=== PATIENT | male | born 1990 | race Caucasian/White ===

== ENCOUNTER 2020-10-02 12:23 | Outpatient (REF) | payer MEDICAID, SELFPAY | END 2020-10-02 12:24 | disposition home or self-care (01) | LOC: HO.LAB 12:23 | PROVIDERS: Visit Provider Internal Medicine | DX: Z20.828 Contact with and (suspected) exposure to other viral communicable diseases (principal) | CPT/HCPCS: 36415; C9803; U0003 ==

== ENCOUNTER 2020-11-25 15:50 | Outpatient (REF) | payer MEDICAID, SELFPAY | END 2020-11-25 15:51 | disposition home or self-care (01) | LOC: HO.LAB 15:50 | PROVIDERS: Visit Provider Internal Medicine | DX: Z20.822 Contact with and (suspected) exposure to COVID-19 (principal) | CPT/HCPCS: 36415; C9803; U0003; U0005 ==

== ENCOUNTER 2021-07-01 15:09 | Outpatient (REF) | payer MEDICAID, SELFPAY | END 2021-07-01 15:10 | disposition home or self-care (01) | LOC: HO.LAB 15:09 | PROVIDERS: Visit Provider Internal Medicine | DX: Z20.822 Contact with and (suspected) exposure to COVID-19 (principal) | CPT/HCPCS: C9803; U0003; U0005 ==

== ENCOUNTER 2023-10-28 19:06 | Emergency (ER) | payer MEDICAID, SELFPAY ==
[2023-10-28 19:33] VITALS: BP 116/79; BP 132/76; PULSE 79; PULSE 80; RESP 16; O2SAT 89; O2SAT 93; BMI 21.1
--- NOTE | 2023-10-28 19:45 | ED.GENADULT ---
HPI - General Adult General Chief complaint: ETOH/Substance Use Stated complaint: ETOH, TOOK 1 PERCOCET, NARCAN GIVEN Time Seen by Provider: 10/28/23 19:26 History of Present Illness HPI narrative: Patient is a 33-year-old male history of possible Xanax use per EMS. Patient admits to EMS that he used some Xanax earlier. Stated that he was at the [employer] with his son. Subsequently went out for a smoke. To the provider he denies using any recreational drugs and is not on any medications. Patient was found on the ground at [facility].. Patient was difficult to arouse. Did not wake up with Narcan. Did not have pinpoint pupils. EMS subsequently woke up patient. Patient was taken to the hospital for further evaluation. He denies any suicidal homicidal ideation. He understood his situation. He just wanted go home. [employer] team talking with him. His brother and his nephew went to flower buncher or picker his son earlier in the day the go to the [employer] together. The child's mother has full custody of the child. There is no fever no chills. No focal weakness. Patient understood everything I told him. Related Data Allergies Allergy/AdvReac Type Severity Reaction Status Date / Time No Known Allergies Allergy Verified 10/28/23 19:40 Review of Systems Review of Systems: No fever no chills no chest pain or shortness of breath PMFSH Past Medical History Attestation statement: The following information was validated with the patient. Physical Exam ED Vital Signs: Vital Signs - 24 hr 10/28/23 19:33 Pulse Rate 80 Respiratory Rate 16 Blood Pressure 116/79 Pulse Oximetry 93 Oxygen Delivery Method Room Air BMI result Body Mass Index 21.1 Appearance: Alert. Oriented X3. No acute distress. Eyes: Pupils equal, round and reactive to light. ENT: Pharynx normal. Neck: Normal inspection. Neck supple. No lymph nodes noted. No crepitus CVS: Normal heart rate and rhythm. Pulses normal. Normal S1 and S2 Respiratory: No respiratory distress. Breath sounds normal. No Wheezing. No rales Abdomen: Soft and nontender. No rigidity. No distention. good BS x4 Skin: Skin warm and dry. Normal skin color. Normal skin turgor. Extremities: No lower extremity edema. Neurovascular intact to all extremities. No Lacerations. No Rash Neuro: Oriented X 3. No motor deficit. No sensory deficit. Moving all extermities. No slurred speech Medical Decision Making Medical Decision Making MDM Narrative: Patient awake alert oriented x3 seems to understand of the question. He understood when I explained to him the possibilities that caused him to pass out. Dose possibility includes cardiac issues irregular heartbeat, recreational drugs and alcohol. Patient's wants to leave. He ambulates in a straight line. He has in no distress. He understood his predicament. Patient left against medical advice. After care team discussion with patient, I felt patient's child most likely safe as he is with patient's brother. Mom has full custody of the child. Differential Diagnosis Differential Diagnoses: The differential diagnosis associated with the presentation includes Syncope, irregular heartbeat, polysubstance abuse Admission/Observation Consideration of admission/observation: Escalation of care including admission/observation considered Chronic Conditions Polysubstance abuse Social Determinants Patient?s care significantly limited by Social Determinants of Health including: Low income, Alcoholism and drug addiction in family and Problems related to primary support group Discharge Plan Discharge Clinical Impression: Polysubstance abuse, Syncope Patient Disposition: Left Against Medical Advice Instructions: Syncope (DC), Against Medical Advice (ED) Referrals: [facility] [Physician] - 11/01/23 Stand Alone Forms: Against Medical Advice
== END 2023-10-28 20:42 | disposition left against medical advice (07) ==
PROVIDERS: Emergency Provider Emergency Medicine Emergency Medical Services; PCP Internal Medicine
DX: F19.10 Other psychoactive substance abuse, uncomplicated (principal); R55 Syncope and collapse
CPT/HCPCS: 99283; 99284

== ENCOUNTER 2024-10-29 13:05 | Emergency (ER) | payer MEDICAID, SELFPAY ==
[2024-10-29] VITALS (13 sets, daily range): BP systolic 109–129; BP diastolic 58–83; PULSE 88–112; RESP 12–110; TEMP 36.4–36.9; O2SAT 89–96; BMI 26.5
--- NOTE | ~2024-10-29 | XR_ITS ---
CLINICAL HISTORY: Pneumonia? 1 view chest x-ray Comparison: None Findings: There is faint left basilar density. No effusion. No pneumothorax. Heart size is normal. No acute fracture. IMPRESSION: Probable left lower lobe pneumonia. Follow-up recommended to ensure resolution. This document has been electronically signed by: José Stewart MD on 10/29/2024 14:46:11
--- NOTE | 2024-10-29 13:36 | ED_ITS ---
HPI - Asthma General Chief Complaint: Asthma Stated Complaint: asthma, diff breathing Time Seen by Provider: 10/29/24 13:42 Source: patient Mode of arrival: ambulatory Limitations: no limitations History of Present Illness ED Provider: DR. Shirley HPI Narrative: 34-year-old male past medical history significant for asthma came in for evaluation of 3 days of shortness of breath, patient run out of his albuterol for the past 2 days, reports productive cough with clear sputum, no fever, chills, no recent travel, no lower extremity swelling or tenderness, patient is an active smoker. Related Data Previous Rx's ?Medication ?Instructions ?Recorded albuterol sulfate 2.5 mg/3 mL 2.5 mg (3 mL) inhalation Q4-6H PRN 10/29/24 (0.083 %) solution for nebulization bronchospasm #75 mL albuterol sulfate 90 mcg/actuation 2 puff inhalation Q4-6H PRN 10/29/24 aerosol inhaler shortness of breath or wheezing #8.5 grams doxycycline hyclate 100 mg tablet 100 mg PO BID #20 tabs 10/29/24 Allergies Allergy/AdvReac Type Severity Reaction Status Date / Time No Known Allergies Allergy Verified 10/29/24 13:34 Review of Systems 2 Review of Systems: all other systems are reviewed and are negative Constitutional: Reports as per HPI and Reports no additional constitutional complaints Eyes: Reports as per HPI and Reports no additional eye complaints Reports system reviewed and no additional complaints, except as documented Cardiovascular: Reports as per HPI and Reports no additional cardiovascular complaints Respiratory: Reports as per HPI and Reports no additional respiratory complaints Gastrointestinal: Reports as per HPI and Reports no additional gastrointestinal complaints Genitourinary: Reports no additional female genitourinary complaints Musculoskeletal: Reports no additional musculoskeletal complaints Skin/Breast: Reports system reviewed and no additional complaints, except as docu Psychiatric: Reports no additional psychiatric complaints Endocrine: Reports no additional endocrine complaints Hematologic/Lymphatic: Reports no additional hematologic/lymphatic complaints Allergic/Immunologic: Reports no additional allergic/immunologic complaints Reports system reviewed and no additional complaints, except as documented and Reports Abnormal speech present [facility] Social History Social History Advance Directives: No Advance Directives Information Provided: No Do you have a plan to hurt others: No Plan Physical Exam 2 Vital Signs: Vital Signs: Last Vital Signs Temp 97.6 F 10/29/24 18:03 Pulse 88 10/29/24 18:03 Resp 18 10/29/24 18:03 BP 109/62 10/29/24 18:03 Pulse Ox 96 10/29/24 18:03 O2 Del Method Nasal Cannula 10/29/24 18:03 O2 Flow Rate 2 10/29/24 18:03 BMI result Body Mass Index 26.5 Vital signs have been reviewed and appear to be correct. Blood pressure elevated. Heart rate normal. Respiratory rate normal. Temperature normal. Oxygen saturation normal. Appearance: Alert. Oriented X3. No acute distress. Head: Normal external exam. Normocephalic. Atraumatic. No Rodas signs noted. No raccoon eyes noted Eyes: PERRLA. EOMI. Conjunctiva and sclera normal. Eyelids normal. ENT: TM's Normal. Pharynx normal. Uvula midline. Moist mucous membranes. No trismus noted. No drooling noted. No muffled voice noted. Neck: Normal inspection. Neck supple. FROM. No adenopathy. Thyroid Normal. No meningeal signs. No neck mass noted. CVS: Normal heart rate and rhythm. Heart sound normal. No murmurs noted. Pulses normal throughout. Respiratory: No respiratory distress. Painless inspiration. diffuse mild expiratory wheezing with prolonged expiration and decrease air entry bilaterally. No accessory muscle usage noted or decreased air movement noted. Abdomen: Soft and nontender. Bowel sounds normal in all 4 quadrants. No distention noted. No organomegaly noted. No visible injury noted. Back: No CVA tenderness. Full range of motion noted. Skin: Skin warm and dry. Normal skin color. Normal skin turgor. No rashes/lesions/lacerations noted. Extremities: No lower extremity edema. Extremities exhibit normal range of motion. Extremities nontender. Neuro: Oriented X 3. Cranial nerve exam: II-XII are grossly intact No motor deficit. No sensory deficit. Reflexes normal. Course Course Course Narrative: RME: Endometrial male presents to ED for coughing shortness of breath and wheezing. O2 saturation room air 86 91%. Significant expiratory wheezing. Patient is brought to the ED. Labs ED brought mass Solu-Medrol ordered. Reevaluation(s) Reevaluation #1: patient now meet sepsis protocol will administer fluid, antibiotic, culture and lactic acid was ordered. Time: 15:18 Reevaluation #2: 34-year-old male history of asthma and smoker, hypoxia, and x-ray is showing pneumonia, patient should be admitted with those multiple risk factors, patient is insisting to go home, patient is AAO x3 I discussed the risk of going home including hypoxia, coma, patient fully understand my instructions and still declined admission patient will be signing AMA. Will discharge with albuterol inhaler, albuterol solution, doxycycline. Time: 17:00 Medications Administered Discontinued Medications Generic Name Dose Route Start Last Admin Trade Name Freq PRN Reason Stop Dose Admin Albuterol Sulfate 2.5 mg/ 5 mg 10/29/24 14:39 10/29/24 14:42 Albuterol Sulfate 2.5 mg INHALE 10/29/24 14:40 5 mg ONCE ONE Administration Ceftriaxone Sodium 1 gm 10/29/24 15:19 10/29/24 15:57 Ceftriaxone Sodium 1 Gm Vial IVPUSH 10/29/24 15:20 1 gm ONCE ONE Administration Albuterol Sulfate 5 mg/ 0 mg 10/29/24 13:46 10/29/24 13:51 Albuterol/Ipratropium 3 ml INHALE 10/29/24 13:47 7.5 each ONCE ONE Administration Magnesium Sulfate 2 gm in 50 mls @ 25 mls/hr 10/29/24 13:35 10/29/24 15:51 Magnesium Sulfate/H2o IV 10/29/24 15:34 Infused ONCE ONE Infusion Sodium Chloride 1,000 mls @ 999 mls/hr 10/29/24 15:19 10/29/24 16:59 Ns IV 10/29/24 16:19 Infused .Q1H1M ONE Infusion Doxycycline Hyclate 100 mg/ 250 mls @ 166.67 mls/hr 10/29/24 15:19 10/29/24 17:27 Sodium Chloride IV 10/29/24 16:48 Infused ONCE ONE Infusion Methylprednisolone Sodium Succinate 125 mg 10/29/24 13:35 10/29/24 13:51 Methylprednisolone Sod Succ 125 Mg/2 Ml Vial IVPUSH 10/29/24 13:36 125 mg ONCE ONE Administration Medical Decision Making Differential Diagnosis Differential Diagnoses: The differential diagnosis associated with the presentation includes ( Asthma exacerbation, pneumonia, pneumothorax, pleural effusion, electrolyte derangement, severe anemia, sepsis.) Admission/Observation Consideration of admission/observation: Escalation of care including admission/observation considered Lab Data MDM Lab Attestation statement: I reviewed the patient's lab results. 10/29/24 13:46 10/29/24 13:46 Labs: Lab Results 10/29/24 10/29/24 10/29/24 Range/Units 13:46 13:48 15:56 WBC 12.4 H (4.8-10.8) X10*3/uL RBC 4.60 (4.60-5.80) X10*6/uL Hgb 13.2 L (14.0-18.0) g/dl Hct 40.1 L (42.0-52.0) % MCV 87.2 (80.0-98.0) fL MCH 28.7 (27.0-33.0) pg MCHC 32.9 (31.0-36.0) g/dl RDW 13.3 (11.0-16.0) % Plt Count 315 (160-400) X10*3/uL MPV 8.6 L (9.4-12.4) fL Immature Gran % (Auto) 0.3 (0.0-0.4) % Neut % (Auto) 67.1 (45-73) % Lymph % (Auto) 16.5 L (20-40) % [place] % (Auto) 8.7 (2-11) % Eos % (Auto) 6.6 H (0-4) % Baso % (Auto) 0.8 (0-2) % Lymph # (Auto) 2.0 (1.2-4.9) X10*3/uL [place] # (Auto) 1.1 (0.1-1.2) X10*3/uL Eos # (Auto) 0.8 H (0.0-0.4) X10*3/uL Baso # (Auto) 0.1 (0.0-0.2) X10*3/uL Abs Immat Gran (auto) 0.04 H (0.00-0.03) X10*3/uL Absolute Neuts (auto) 8.3 (2.0-8.3) x10*3/uL Absolute Nucleated RBC 0.000 (0.0-0.012) X10*3/uL Nucleated RBC % (auto) 0.0 (0.0-0.2) /100WBC Hold Purple Top SEE NOTE Hold Blue Top SEE NOTE Sodium 142 (135-145) mmol/L Potassium 4.1 (3.3-5.1) mmol/L Chloride 105 (96-108) mmol/L Carbon Dioxide 27 (22-29) mmol/L Anion Gap 14 (12-20) BUN 11 (9-16) mg/dL Creatinine 0.80 (0.5-1.4) mg/dL Estim Creat Clear Calc 119.6 Estimated GFR > 60 Random Glucose 73 (60-115) mg/dL Lactic Acid 2.7 H* (0.5-2.0) mmol/L Calcium 9.3 (8.4-10.2) mg/dL Total Bilirubin 0.2 (0.0-1.0) mg/dL AST 21 (5-37) U/L ALT 19 (0-40) U/L Alkaline Phosphatase 58 (39-117) U/L Total Protein 8.2 H (6.5-8.0) g/dL Albumin 4.6 (3.5-5.0) g/dL Hold Green Top See Note Influenza Type A (PCR) NEGATIVE (Negative) Influenza Type B (PCR) NEGATIVE (Negative) RSV RNA Qual (PCR) NEGATIVE (Negative) SARS-CoV-2 RNA (RT-PCR) NEGATIVE (Negative) S. pyogenes GrpA MARTIN Negative (Negative) Independent Interpretation I performed an independent interpretation of an: Plain X-Ray ( Chest:Probable left lower lobe pneumonia. Follow-up recommended to ensure resolution.) Radiology Impression Discussion of test interpretation with radiology: I have reviewed the radiologist's reading. Discharge Plan Discharge Clinical Impression: Pneumonia, Asthma with acute exacerbation Patient Disposition: Left Against Medical Advice Instructions: Community Acquired Pneumonia (ED) Prescriptions: New doxycycline hyclate 100 mg tablet 100 mg PO BID Qty: 20 0RF albuterol sulfate 90 mcg/actuation HFA aerosol inhaler 2 puff inhalation Q4-6H PRN (Reason: shortness of breath or wheezing) Qty: 8.5 0RF albuterol sulfate 2.5 mg /3 mL (0.083 %) solution for nebulization 2.5 mg inhalation Q4-6H PRN (Reason: bronchospasm) Qty: 75 0RF Stand Alone Forms: Against Medical Advice Interventions: ED Discharge Assessment Last Done: 10/29/24 18:03 Discharge Date/Time: 10/29/24 18:02 Print Language: Greek
[2024-10-29] MEDS: Albuterol Sulfate 5 MG, Albuterol/Iprat 2.5/0.5MG 3 ML 3 ML INHALE (13:51)
[2024-10-29] MEDS: methylPREDNISolone Sod Succ 125 MG/2 ML VIAL IVPUSH (13:51)
[2024-10-29] MEDS: Magnesium Sulfate/H2O 2 GM/50 ML PIGGYBACK IV (13:51)
[2024-10-29 13:54] LABS: MANUAL DIFF FLAG NO
--- OUTSIDE RECORDS SUMMARY | 2024-10-29 13:57 | XMS_ITS | Encounter Summary ---
Author Organization [facility] Address [address] [place] [phone] Phone Care Team Providers Care Roller Hand Name Role Phone Damon Jones MD Primary Care Provider [phone] Encounter Details Date Type Department Care Team (Late st Contact Info) Description 05/05/2017 Conversion Encounter [facility] - [address], [address] [place] [address] Damon Jones MD [address] [place] [phone] Social History Tobacco Use Types Packs/Day Years Used Date Smoking Tobacco: Never Assessed Sex and Gender Information Value Date Recorded Sex Assigned at Not on file Legal Sex Male 5:21 PM EST Gender Identity Not on file Sexual Orientation Not on file documented as of this encounter Plan of Treatment Not on file documented as of this encounter Visit Diagnoses Not on filedocumented in this encounter Care Teams Roller Hand Relationship Specialty Start Date End Date Damon Jones MD [address] [place] [address] PCP - General 11/17/16 04/08/21 documented as of this encounter
--- NOTE | 2024-10-29 14:00 | PC.NURSE ---
pt presents to the ED d/t asthma exacerbation. RT bedside. 88% on RA upon ED arrival. tachycardic. otherwise vss and up to date. pt reports increased sob x 4-5 days. ran out of nebulizers/inhalers at home. wheezing noted throughout. pt denies chest pain/palpitations/productive cough/chills. 20gIV placed in the right upper arm - labs obtained/sent to lab. medication administered per provider order. effectiveness pending. pt receiving breathing tx. chest xray results pending at this time. plan of care ongoing. call ruffin placed within reach.
[2024-10-29 14:05] LABS: IDNOW Serial# 6674DD1D; Strep A Nucleic Acid Negative (Negative)
[2024-10-29 14:07] LABS: Basophils Absolute Auto 0.1 X10*3/uL (0.0-0.2); Basophils Percent Auto 0.8 % (0-2); Eosinophils Absolute Auto 0.8 X10*3/uL (0.0-0.4); Eosinophils Percent Auto 6.6 % (0-4); Hematocrit 40.1 % (42.0-52.0); Hemoglobin 13.2 g/dl (14.0-18.0); Imm Gran Abs Auto 0.04 X10*3/uL (0.00-0.03); Imm Gran Pct Auto 0.3 % (0.0-0.4); Lymphocytes Percent Auto 16.5 % (20-40); Mean Corpuscular HGB Conc 32.9 g/dl (31.0-36.0); Mean Corpuscular Hemoglobin 28.7 pg (27.0-33.0); Mean Corpuscular Volume 87.2 fL (80.0-98.0); Mean Platelet Volume 8.6 fL (9.4-12.4); Monocytes Absolute Auto 1.1 X10*3/uL (0.1-1.2); Monocytes Percent Auto 8.7 % (2-11); Neutrophils Absolute Auto 8.3 x10*3/uL (2.0-8.3); Neutrophils Percent Auto 67.1 % (45-73); Platelet Count 315 X10*3/uL (160-400); Red Cell Distribution Width 13.3 % (11.0-16.0); White Blood Count 12.4 X10*3/uL (4.8-10.8)
[2024-10-29 14:12] LABS: Alanine Aminotransferase 19 U/L (0-40); Albumin Level 4.6 g/dL (3.5-5.0); Alkaline Phosphatase 58 U/L (39-117); Anion Gap 14 (12-20); Aspartate Amino Transferase 21 U/L (5-37); Bilirubin Total 0.2 mg/dL (0.0-1.0); Blood Urea Nitrogen 11 mg/dL (9-16); Calcium 9.3 mg/dL (8.4-10.2); Carbon Dioxide 27 mmol/L (22-29); Chloride 105 mmol/L (96-108); Creatinine Clr Calc Pharmacy 119.6; Estimated Glomerular Filt Rate > 60; Glucose Random 73 mg/dL (60-115); Potassium 4.1 mmol/L (3.3-5.1); Sodium 142 mmol/L (135-145); Total Protein 8.2 g/dL (6.5-8.0)
--- NOTE | 2024-10-29 14:14 | PC.NURSE ---
pt noted to remain at 86%-91% on RA w/ a good read post breathing tx. pt placed on 2L via NC. pt otherwise remains sinus tachy. vitals otherwise stable/wnl. wob decreased post breathing tx/medication administration. pt remains upright to promote patent airway. plan of care ongoing.
[2024-10-29] MEDS: Albuterol Sulfate 2.5 MG, Albuterol Sulfate (0.083%) 2.5 MG 5 MG INHALE (14:42)
--- NOTE | 2024-10-29 14:54 | PC.NURSE ---
pt receiving 2nd breathing tx at this time.
[2024-10-29 15:14] LABS: Influenza A PCR NEGATIVE (Negative); Influenza B PCR NEGATIVE (Negative); Resp Syncy Virus RNA Qual PCR NEGATIVE (Negative); SARS COV2 PCR INHOUSE NEGATIVE (Negative)
[2024-10-29] MEDS: cefTRIAXone sodium 1 GM VIAL IVPUSH (15:57)
[2024-10-29] MEDS: Doxycycline Hyclate 100 MG in 0.9 % Sodium Chloride 250 ML 166.67 MG IV (15:57)
[2024-10-29] MEDS: 0.9 % Sodium Chloride 1,000 ML 999 ML IV (15:58)
--- NOTE | 2024-10-29 16:03 | PC.NURSE ---
Addendum entered by Missy Talavera 10/29/24 16:04: delay in abx administration d/t emergent situation w/ other pt in ED4. Original Note: sepsis workup initated. cultures/lactic obtained/sent to lab by tech. IVF/abx administered per provider order. pt remains on 2L via oxymask at this time. respirations remain even/unlabored. plan of care ongoing.
[2024-10-29 16:40] LABS: Lactic Acid 2.7 mmol/L (0.5-2.0)
--- NOTE | 2024-10-29 17:59 | PC.NURSE ---
pt refusing to stay/be treated despite labs/vitals/being a sepsis alert. this RN as well as MD attempted to speak w/ pt in regards to importance of staying. pt still refusing. pt signed AMA paperwork.
[2024-10-29 18:03] LABS: Reflex Lactate? Lactic Acid Added
== END 2024-10-29 18:02 | disposition left against medical advice (07) ==
PROVIDERS: Physician Assistant; Emergency Provider Emergency Medicine
DX: J18.9 Pneumonia, unspecified organism (principal); J45.901 Unspecified asthma with (acute) exacerbation; R06.02 Shortness of breath; R05.9 Cough, unspecified; Z79.899 Other long term (current) drug therapy; Z03.818 Encounter for observation for suspected exposure to other biological agents ruled out
CPT/HCPCS: 0241U; 36415; 71045; 80053; 83605; 85025; 87040; 87651; 94640; 96365; 96366; 96367; 96375; 99284; J0696; J2919; J3475

== ENCOUNTER → 2024-10-29 13:35 | Outpatient (BNV) | payer MEDICAID, SELFPAY | PROVIDERS: Emergency Provider Emergency Medicine; Visit Provider Radiology Vascular & Interventional Radiology | DX: J18.9 Pneumonia, unspecified organism (principal) | CPT/HCPCS: 71045 ==

== ENCOUNTER 2024-11-26 13:44 | Emergency (ER) | payer MEDICAID, SELFPAY ==
--- NOTE | 2024-11-26 | ECG_ITS ---
Test Reason : sob Blood Pressure : */* mmHG Vent. Rate : 84 BPM Atrial Rate : 84 BPM P-R Int : 136 ms QRS Dur : 84 ms QT Int : 354 ms P-R-T Axes : 83 80 60 degrees QTcB Int : 418 ms Normal sinus rhythm with sinus arrhythmia Normal ECG No previous ECGs available Referred By: Ryan Murry Electronically Signed By: GER ANAND MD
[2024-11-26 13:54] VITALS: BP 147/92; PULSE 74; RESP 18; TEMP 36.6; O2SAT 94; BMI 21.3
--- NOTE | 2024-11-26 13:58 | ED_ITS ---
HPI - General Adult General Chief complaint: Asthma Stated complaint: diff breathing Time Seen by Provider: 11/26/24 14:02 History of Present Illness ED Provider: Lovely BYRNE narrative: The patient is a 34-year-old male with a history of asthma who says that he recently ran out of medication for his nebulizer machine at home and also ran out of his inhaler. He has been having worsening symptoms of shortness of breath since yesterday and he could not treat himself because of a lack of medications. He has had no definite fevers, sweats, chills. He became extremely short of breath and finally came to the emergency department. He says that this episode is similar to previous significant asthma exacerbations. Related Data Previous Rx's ?Medication ?Instructions ?Recorded albuterol sulfate 2.5 mg/3 mL 2.5 mg (3 mL) inhalation Q4-6H PRN 10/29/24 (0.083 %) solution for nebulization bronchospasm #75 mL albuterol sulfate 90 mcg/actuation 2 puff inhalation Q4-6H PRN 10/29/24 aerosol inhaler shortness of breath or wheezing #8.5 grams doxycycline hyclate 100 mg tablet 100 mg PO BID #20 tabs 10/29/24 albuterol sulfate 2.5 mg/3 mL 2.5 mg (3 mL) inhalation Q4H PRN 11/26/24 (0.083 %) solution for nebulization bronchospasm #180 mL budesonide-formoterol HFA 160 2 puff inhalation BID #10.2 grams 11/26/24 mcg-4.5 mcg/actuation aerosol inhaler prednisone 20 mg tablet 20 mg PO DAILY #12 tabs 11/26/24 Allergies Allergy/AdvReac Type Severity Reaction Status Date / Time No Known Allergies Allergy Verified 11/26/24 13:57 Review of Systems Review of Systems: Yes all other systems are reviewed and are negative PMFSH Social History Social History Advance Directives: No Advance Directives Information Provided: No Physical Exam ED Vital Signs: Vital Signs - 24 hr 11/26/24 13:54 11/26/24 14:14 11/26/24 15:15 Temperature 97.8 F Pulse Rate 74 91 78 Respiratory Rate 18 30 H 13 Blood Pressure 147/92 H Pulse Oximetry 94 Oxygen Delivery Method Room Air 11/26/24 16:37 Temperature 97.9 F Pulse Rate 84 Respiratory Rate 18 Blood Pressure 129/78 Pulse Oximetry 96 Oxygen Delivery Method Room Air BMI result Body Mass Index 21.3 Const Other: The patient is a slim 34-year-old who was awake and alert. He looked extremely short of breath. HENMT Other: Face is symmetrical. Mucous membranes moist. Eyes General: appearance normal, both eyes and all related structures Neck Neck: Yes full ROM, Yes no lymphadenopathy and Yes no JVD Resp Other: The patient was exhibiting obvious increased work of breathing with tachypnea and intercostal indrawing. The patient had diminished breath sounds bilaterally with inspiratory and expiratory wheezes. Prolonged expiratory phase. Cardio Rate: regular rate Rhythm: regular rhythm Heart sounds: S1 normal heart sound present and S2 normal heart sound present GI Other: Abdomen is flat, soft, and nontender Skin Other: skin is dry and unremarkable Neuro Other: the patient was awake and alert. He looks distracted by his difficulty breathing but otherwise had a normal mental status. Cranial nerves 2 through 12 are intact. He was move his extremities normally and appropriately. Gait was steady. Extrem Other: No calf swelling or tenderness. No peripheral edema. Course Course Course Narrative: RME: 34 yold male with pmh of asthma presents to the ED for SOB, coughing, and wheezing for couple of days. positive for wheezing on exam. SARS/Strep/Chest xray ordered. ED bronchodilator ordered Medications Administered Discontinued Medications Generic Name Dose Route Start Last Admin Trade Name Freq PRN Reason Stop Dose Admin Albuterol Sulfate 7.5 mg/ 10 mg 11/26/24 14:13 11/26/24 14:15 Albuterol Sulfate 2.5 mg INHALE 11/26/24 14:14 10 mg ONCE ONE Administration Albuterol Sulfate 5 mg/ 0 mg 11/26/24 15:10 11/26/24 15:14 Albuterol/Ipratropium 3 ml INHALE 11/26/24 15:11 7.5 each ONCE ONE Administration Magnesium Sulfate 2 gm in 50 mls @ 150 mls/hr 11/26/24 14:06 11/26/24 14:32 Magnesium Sulfate/H2o IV 11/26/24 14:25 Infused ONCE ONE Infusion Prednisone 60 mg 11/26/24 14:06 11/26/24 14:24 Prednisone 20 Mg Tablet PO 11/26/24 14:07 60 mg ONCE ONE Administration Medical Decision Making Medical Decision Making [facility] Narrative: The patient is a 34-year-old male with a history of asthma presented with the acute respiratory distress. His physical exam was consistent with a severe asthma exacerbation. His oxygen saturation when I saw him was 88% on room air. He was seen promptly and given 2 g of IV magnesium. He was given an additional dose of albuterol 10 mg as a bronchodilator treatment. He was subsequently given a 2nd dose of 5 mg of albuterol with 2.5 mg of ipratropium. He was observed. His respiratory symptoms improved dramatically. His increasedwork of breathing resolved. his air entry was much better on examination. His room air saturation was 97%. The patient was feeling considerably better and was eager for discharge. He requested medication for his nebulizer machine. He was prescribed albuterol nebulous. He will also be prescribed a course of additional prednisone for the next 5 days and was prescribed a budesonide formoterol inhaler. His primary care doctor is Dr. Anthony Mayen at [facility] in [place]. He is encouraged to get a prompt follow up appointment. He should return to the emergency room if worse. Lab Data Labs: Lab Results 11/26/24 Range/Units 16:09 Influenza Type A (PCR) NEGATIVE (Negative) Influenza Type B (PCR) NEGATIVE (Negative) RSV RNA Qual (PCR) NEGATIVE (Negative) SARS-CoV-2 RNA (RT-PCR) NEGATIVE (Negative) S. pyogenes GrpA MARTIN Negative (Negative) Discharge Plan Discharge Clinical Impression: Asthma with acute exacerbation Patient Disposition: Home, Self-Care Instructions: Asthma (ED) Additional Instructions: You has been started on a course of prednisone. A prescription has been sent to your pharmacy for additional prednisone. 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 A prescription has also been sent for albuterol that you may use your nebulizer machine at home. For an inhaler that you may keep with you I have sent a prescription for a medication called budesonide-formoterol. This is a combination of a bronchodilator ( like albuterol) and a steroid. When you are feeling well you should use this 2 puffs 2 times a day to help keep your asthma symptoms controlled. For your exacerbation episodes you may use this as frequently as 2 puffs every 4 hours. Please follow up soon with your regular doctor. Call in the morning for a follow up appointment. Do your best to not smoke or use any vaping devices. Return to the emergency room if significantly worse. Prescriptions: New prednisone 20 mg tablet 20 mg PO DAILY Qty: 12 0RF Rx Instructions: Take 3 tablets by mouth daily for 2 days then take 2 tablets by mouth daily for 3 days. budesonide-formoterol 160-4.5 mcg/actuation HFA aerosol inhaler 2 puff inhalation BID Qty: 10.2 0RF albuterol sulfate 2.5 mg /3 mL (0.083 %) solution for nebulization 2.5 mg inhalation Q4H PRN (Reason: bronchospasm) Qty: 180 0RF No Action doxycycline hyclate 100 mg tablet 100 mg PO BID Qty: 20 0RF albuterol sulfate 90 mcg/actuation HFA aerosol inhaler 2 puff inhalation Q4-6H PRN (Reason: shortness of breath or wheezing) Qty: 8.5 0RF albuterol sulfate 2.5 mg /3 mL (0.083 %) solution for nebulization 2.5 mg inhalation Q4-6H PRN (Reason: bronchospasm) Qty: 75 0RF Referrals: Anthony Mayen MD [Primary Care Provider] - (asthma exacerbation) Interventions: ED Discharge Assessment Last Done: 11/26/24 16:37 Discharge Date/Time: 11/26/24 16:39 Print Language: Estonian
[2024-11-26] MEDS: Magnesium Sulfate/H2O 2 GM/50 ML PIGGYBACK IV (14:10)
[2024-11-26 14:14] VITALS: PULSE 91; RESP 30; O2SAT 94
[2024-11-26] MEDS: Albuterol Sulfate 7.5 MG, Albuterol Sulfate (0.083%) 2.5 MG 10 MG INHALE (14:15)
[2024-11-26] MEDS: predniSONE 20 MG TABLET 60 MG PO (14:24)
--- NOTE | 2024-11-26 14:28 | PC.NURSE ---
PT O2 sats at 79% on RA pt placed on 2L NC, pt sats went up to 90 pt on 3L NC and at 94%
[2024-11-26] MEDS: Albuterol Sulfate 5 MG, Albuterol/Iprat 2.5/0.5MG 3 ML 3 ML INHALE (15:14)
[2024-11-26 15:15] VITALS: PULSE 78; RESP 13; O2SAT 95
[2024-11-26 16:24] LABS: IDNOW Serial# 58CA691E; Strep A Nucleic Acid Negative (Negative)
[2024-11-26 16:37] VITALS: BP 129/78; PULSE 84; RESP 18; TEMP 36.6; O2SAT 96
[2024-11-26 17:23] LABS: Influenza A PCR NEGATIVE (Negative); Influenza B PCR NEGATIVE (Negative); Resp Syncy Virus RNA Qual PCR NEGATIVE (Negative); SARS COV2 PCR INHOUSE NEGATIVE (Negative)
== END 2024-11-26 16:39 | disposition home or self-care (01) ==
PROVIDERS: Physician Assistant; Emergency Provider Emergency Medicine; PCP Internal Medicine
DX: J45.901 Unspecified asthma with (acute) exacerbation (principal); R06.02 Shortness of breath; I49.8 Other specified cardiac arrhythmias; Z03.818 Encounter for observation for suspected exposure to other biological agents ruled out; Z79.899 Other long term (current) drug therapy
CPT/HCPCS: 0241U; 87651; 93005; 94640; 96365; 99284; J3475

== ENCOUNTER → 2024-11-26 14:13 | Outpatient (BNV) | payer MEDICAID, SELFPAY | PROVIDERS: Emergency Provider Emergency Medicine; PCP Internal Medicine; Visit Provider Internal Medicine Cardiovascular Disease | DX: R06.02 Shortness of breath (principal) | CPT/HCPCS: 93010 ==

== ENCOUNTER 2025-03-01 09:14 | Emergency (ER) | payer SELFPAY ==
--- NOTE | ~2025-03-01 | XR_ITS ---
EXAMINATION: XR CHEST CLINICAL INFORMATION: Shortness of breaths COMPARISON: 10/29/2024. TECHNIQUE: Frontal view of the chest was obtained. FINDINGS: The cardiac, hilar, and mediastinal contours are normal. The lungs are clear bilaterally. No pneumothorax or effusion. No focal osseous or soft tissue abnormality. XR/XR chest 1V IMPRESSION: No active pulmonary disease. Electronically signed by: Cheng Obrien MD 03/01/2025 10:33 AM EDT
[2025-03-01] MEDS: Albuterol Sulfate 5 MG, Albuterol/Iprat 2.5/0.5MG 3 ML 3 ML INHALE (09:25)
[2025-03-01 09:27] VITALS: BP 137/85; BP 148/100; PULSE 110; PULSE 96; RESP 20; TEMP 36.9; O2SAT 95; BMI 23.9
--- NOTE | 2025-03-01 09:28 | ECG_ITS ---
Test Reason : SOB Blood Pressure : */* mmHG Vent. Rate : 102 BPM Atrial Rate : 102 BPM P-R Int : 114 ms QRS Dur : 86 ms QT Int : 346 ms P-R-T Axes : 81 84 61 degrees QTcB Int : 450 ms Sinus tachycardia Otherwise normal ECG When compared with ECG of 26-Nov-2024 14:13, No significant change was found Referred By: Marla Sheppard Electronically Signed By: ROE DUNCAN
--- NOTE | 2025-03-01 09:29 | ED_ITS ---
HPI - Asthma General Chief Complaint: Dyspnea Stated Complaint: SOB X3D, DUONEB GIVEN PER EMS Time Seen by Provider: 03/01/25 09:17 Source: patient, EMS, RN notes reviewed and old records reviewed Mode of arrival: EMS Limitations: no limitations History of Present Illness ED Provider: Kevin Sheppard PA-C HPI Narrative: 34-year-old male with history of severe persistent asthma presenting to the ER for evaluation of worsening shortness of breath for the last 3 days. Patient reports that the and spring season tends to trigger his asthma every year. He states he has been using his albuterol inhaler and nebulizer several times per day without any improvement. He has been coughing up green phlegm. He states he has a diffuse headache from coughing so much. This morning he states his breathing got progressively worse and he called 911. On EMS arrival patient was tachypneic in respiratory distress with diffuse wheezing. He was saturating in the high 80s on room air. He was placed on a non-rebreather, IV was established and he was given IV Solu-Medrol 125 mg. He is also given a DuoNeb EN route. Respiratory rate improved on arrival. MD complaint: shortness of breath, wheezing and other (Asthma) Onset (ago): day(s) (3) Severity: severe Context: allergen exposure Associated symptoms: productive cough Asthma History: childhood onset Treatments Prior to Arrival: inhaled bronchodilator Related Data Current Asthma Therapy: inhaled bronchodilator Previous Rx's ?Medication ?Instructions ?Recorded albuterol sulfate 2.5 mg/3 mL 2.5 mg (3 mL) inhalation Q4-6H PRN 10/29/24 (0.083 %) solution for nebulization bronchospasm #75 mL albuterol sulfate 90 mcg/actuation 2 puff inhalation Q4-6H PRN 10/29/24 aerosol inhaler shortness of breath or wheezing #8.5 grams doxycycline hyclate 100 mg tablet 100 mg PO BID #20 tabs 10/29/24 albuterol sulfate 2.5 mg/3 mL 2.5 mg (3 mL) inhalation Q4H PRN 11/26/24 (0.083 %) solution for nebulization bronchospasm #180 mL budesonide-formoterol HFA 160 2 puff inhalation BID #10.2 grams 11/26/24 mcg-4.5 mcg/actuation aerosol inhaler prednisone 20 mg tablet 20 mg PO DAILY #12 tabs 11/26/24 albuterol sulfate 5 mg/mL(0.5 %) 5 mg inhalation Q4H PRN shortness 03/01/25 solution for nebulization of breath or wheezing #75 mL azithromycin 250 mg tablet See Rx Instructions PO .COMPLEX #6 03/01/25 (Zithromax Z-Kristian) tabs budesonide 90 mcg/actuation breath 1 inh inhalation Q12H #1 ea 03/01/25 activated powder inhaler (Pulmicort Flexhaler) cetirizine 10 mg capsule (Zyrtec) 10 mg PO DAILY #30 caps 03/01/25 prednisone 10 mg tablets in a dose See Taper PO DAILY #30 ea 03/01/25 pack Allergies Allergy/AdvReac Type Severity Reaction Status Date / Time No Known Allergies Allergy Verified 03/01/25 09:30 Review of Systems 2 Review of Systems: Yes all other systems are reviewed and are negative [facility] Social History Social History Advance Directives: No Advance Directives Information Provided: No Physical Exam 2 Vital Signs: Vital Signs: Last Vital Signs Temp 97.6 F 03/01/25 12:33 Pulse 90 03/01/25 12:33 Resp 13 03/01/25 12:33 BP 121/70 03/01/25 12:33 Pulse Ox 88 L 03/01/25 12:33 O2 Del Method Room Air 03/01/25 12:33 O2 Flow Rate 7 03/01/25 10:21 Oxygen Flow Rate 6 03/01/25 09:27 BMI result Body Mass Index 23.9 Appearance: Alert. Oriented X3. Moderate respiratory distress, slightly diaphoretic Head: normocephalic, atraumatic. Eyes: Pupils equal, round and reactive to light. ENT: Pharynx normal. No tonsillar swelling or exudate. Neck: Normal inspection. Neck supple. CVS: Tachycardic, regular rhythm, heart rate 110 Pulses normal. Respiratory: Moderate respiratory distress, grunting, increased respiratory rate, accessory muscle use Breath sounds with diffuse inspiratory and expiratory wheezing Abdomen: Soft and nontender. +BS x4 Skin: Skin warm and dry. Normal skin color. Normal skin turgor. No rashes. Extremities: No lower extremity edema. No joint swelling. Negative Homans sign Neuro/psych: Oriented X 3. Grossly normal, nonfocal CN II-XII intact. Normal speech and cognition. Medications Administered Discontinued Medications Generic Name Dose Route Start Last Admin Trade Name Michael PRN Reason Stop Dose Admin Albuterol Sulfate 5 mg/ 0 mg 03/01/25 09:24 03/01/25 09:25 Albuterol/Ipratropium 3 ml INHALE 03/01/25 09:25 7.5 each ONCE ONE Administration Magnesium Sulfate 2 gm in 50 mls @ 150 mls/hr 03/01/25 09:29 03/01/25 10:02 Magnesium Sulfate/H2o IV 03/01/25 09:48 Infused ONCE ONE Infusion Ketorolac Tromethamine 15 mg 03/01/25 09:38 03/01/25 09:45 Ketorolac Tromethamine 15 Mg/Ml Vial IVPUSH 03/01/25 09:39 15 mg ONCE ONE Administration Medical Decision Making Medical Decision Making MDM Narrative: 34-year-old male with a history of severe persistent asthma, he reports using his rescue inhaler daily, does not follow with a blueprint blocker, is not on any allergy medication, who presents to the ER for evaluation of 3 days of worsening asthma symptoms despite using his albuterol inhaler and nebulizer. He was hypoxic for EMS, tachypneic and in respiratory distress. He was given Solu- Medrol and DuoNeb EN route. On arrival to the ER patient was transition to nasal cannula. RT at the bedside and ED bronchodilator protocol started. Magnesium and labs ordered Patient breathing more comfortably after nebulizer administration here. He was attempted to come off of nasal cannula however was hypoxic to the mid 80s after about 3 minutes on room air. He is back on 3 L nasal cannula. Anticipate he will require admission 13:15 - multiple conversations were had with the patient regarding his hypoxia and ongoing oxygen need. He was adamant that he does not want to stay in the hospital and would like to leave against medical advice. He was monitored on room air for over an hour and SpO2 ranged 88-95%. He is overall feeling much better would like to go home. We discussed the risk of hypoxia at home, inability to discharge with supplemental oxygen and risk of possible adverse event even . Patient understands the risks and would like to be discharged. Patient's father at the bedside who also tried to convince him to stay but he is unwilling. Father to transport him home. He states he has a home pulse oximeter that he will use to monitor his oxygen levels at home Differential Diagnosis Differential Diagnoses: The differential diagnosis associated with the presentation includes Acute asthma exacerbation, viral bronchitis, status asthmaticus, COPD exacerbation, heart failure exacerbation, viral illness Admission/Observation Consideration of admission/observation: Escalation of care including admission/observation considered Lab Data MDM Lab Attestation statement: I reviewed the patient's lab results. No leukocytosis, elevated bicarb concerning for chronic CO2 retention, mild anemia 03/01/25 09:35 03/01/25 09:35 Labs: Lab Results 03/01/25 03/01/25 Range/Units 09:35 09:41 WBC 10.0 (4.8-10.8) X10*3/uL RBC 4.35 L (4.60-5.80) X10*6/uL Hgb 11.9 L (14.0-18.0) g/dl Hct 37.4 L (42.0-52.0) % MCV 86.0 (80.0-98.0) fL MCH 27.4 (27.0-33.0) pg MCHC 31.8 (31.0-36.0) g/dl RDW 14.0 (11.0-16.0) % Plt Count 266 (160-400) X10*3/uL MPV 8.7 L (9.4-12.4) fL Immature Gran % (Auto) 0.3 (0.0-0.4) % Neut % (Auto) 54.4 (45-73) % Lymph % (Auto) 25.3 (20-40) % [place] % (Auto) 8.5 (2-11) % Eos % (Auto) 10.1 H (0-4) % Baso % (Auto) 1.4 (0-2) % Lymph # (Auto) 2.5 (1.2-4.9) X10*3/uL [place] # (Auto) 0.9 (0.1-1.2) X10*3/uL Eos # (Auto) 1.0 H (0.0-0.4) X10*3/uL Baso # (Auto) 0.1 (0.0-0.2) X10*3/uL Abs Immat Gran (auto) 0.03 (0.00-0.03) X10*3/uL Absolute Neuts (auto) 5.4 (2.0-8.3) x10*3/uL Absolute Nucleated RBC 0.000 (0.0-0.012) X10*3/uL Nucleated RBC % (auto) 0.0 (0.0-0.2) /100WBC VBG pH 7.37 (7.32-7.43) VBG pCO2 60 mmHg VBG pO2 64 mmHg VBG HCO3 35 H (22-26) mmol/L VBG O2 Saturation 87.0 % VBG Base Excess 8.5 mmol/L Sodium 144 (135-145) mmol/L Potassium 3.9 (3.3-5.1) mmol/L Chloride 105 (96-108) mmol/L Carbon Dioxide 32 H (22-29) mmol/L Anion Gap 11 L (12-20) BUN 19 H (9-16) mg/dL Creatinine 0.86 (0.5-1.4) mg/dL Estim Creat Clear Calc 103.2 Estimated GFR > 60 Random Glucose 111 (60-115) mg/dL Calcium 9.3 (8.4-10.2) mg/dL Magnesium 1.9 (1.6-2.6) mg/dL Total Bilirubin 0.1 (0.0-1.0) mg/dL Direct Bilirubin < 0.2 (0.0-0.5) mg/dL AST 21 (5-37) U/L ALT 11 (0-40) U/L Alkaline Phosphatase 73 (39-117) U/L Troponin I High Sens < 2.7 (<3.5-35.0) ng/L Total Protein 7.1 (6.5-8.0) g/dL Albumin 4.1 (3.5-5.0) g/dL Influenza Type A (PCR) NEGATIVE (Negative) Influenza Type B (PCR) NEGATIVE (Negative) RSV RNA Qual (PCR) NEGATIVE (Negative) SARS-CoV-2 RNA (RT-PCR) NEGATIVE (Negative) ABG Data ABG Results: 64 Attestation ABG: I personally reviewed and interpreted this ABG as follows: Interpretation: Compensated respiratory acidosis Ordered a repeat VBG for comparison off of O2 but he declined Independent Interpretation I performed an independent interpretation of an: EKG and Plain X-Ray Interpretation: Chest x-ray with no focal consolidation or effusion EKG with sinus tachycardia, ventricular rate 102 beats per minute, normal QTC, normal AK interval, no ST segment elevations or depressions, no change from 3 months ago Radiology Impression Discussion of test interpretation with radiology: I have reviewed the radiologist's reading. Radiologist Impression: XR/XR chest 1V IMPRESSION: No active pulmonary disease. Independent Historian Clinical information obtained from an independent historian. History obtained from or confirmed by: EMS External Record Review External record reviewed: Outpatient record, Prior outpatient labs and Prior outpatient radiology Prescription Management I considered prescription management with: Antibiotic Does not meet sepsis criteria, no evidence of infection Chronic Conditions Patient?s care impacted by: Other (Asthma) Critical Care Time Critical Care Time Critical Care Time: Yes Total Critical Care Time: 33 Attestation: I have personally provided critical care time exclusive of time spent on separately billable procedures. Time includes review of lab data, radiology results, discussion with consultants, and monitoring for potential decompensation. Intervention performed as documented. Discharge Plan Discharge Clinical Impression: Acute respiratory failure with hypoxia Asthma with exacerbation Qualifiers: Asthma severity: severe Asthma persistence: persistent Qualified Code(s): J 45.51 - Severe persistent asthma with (acute) exacerbation Patient Disposition: Left Against Medical Advice Instructions: Asthma (ED), Hypoxia (ED) Additional Instructions: Your x-ray today did not show any evidence of pneumonia. Your oxygen levels were persistently low in the emergency department. Admission was recommended however you decline despite risks of low oxygen levels at home and . Take the prescribed antibiotics as directed, complete the entire course and do not miss any doses - via azithromycin has anti-inflammatory effects that will help your lungs. Use the prescribed albuterol nebulizer every 4 hours as needed for wheezing and shortness of breath. Take the prescribed Zyrtec daily to help with asthma symptoms. Take the prednisone taper as directed. Start this today. Complete the entire course. Once the prednisone is completed, start daily budesonide inhaler to help prevent asthma exacerbations. Rinse out her mouth after use this inhaler to prevent thrush. Recommend following up with a blueprint blocker, name and number below. Call for an appointment. If you develop new or worsening symptoms call 911 or come back to the ER for further evaluation. Prescriptions: New prednisone 10 mg tablets,dose pack See Taper PO DAILY Qty: 30 0RF Taper: Prednisone 40 mg daily for 3 Days and 0 Hour 30 mg daily for 3 Days and 0 Hour 20 mg daily for 3 Days and 0 Hour 10 mg daily for 3 Days and 0 Hour Rx Instructions: 40 mg Daily x3 days, 30 mg daily x3 days, 20 mg daily x3 days, 10 mg daily x3 days azithromycin [Zithromax Z-Kristian] 250 mg tablet See Rx Instructions PO .COMPLEX Qty: 6 0RF Rx Instructions: take 500 mg today (day 1), then 250 mg for 4 days (days 2-5) Pulmicort Flexhaler 90 mcg/actuation aerosol powdr breath activated 1 inh inhalation Q12H Qty: 1 0RF Zyrtec 10 mg capsule 10 mg PO DAILY Qty: 30 0RF albuterol sulfate 5 mg/mL solution for nebulization 5 mg inhalation Q4H PRN (Reason: shortness of breath or wheezing) Qty: 75 0RF Rx Instructions: until breathing returns to target peak flow/parameters No Action prednisone 20 mg tablet 20 mg PO DAILY Qty: 12 0RF Rx Instructions: Take 3 tablets by mouth daily for 2 days then take 2 tablets by mouth daily for 3 days. budesonide-formoterol 160-4.5 mcg/actuation HFA aerosol inhaler 2 puff inhalation BID Qty: 10.2 0RF albuterol sulfate 2.5 mg /3 mL (0.083 %) solution for nebulization 2.5 mg inhalation Q4H PRN (Reason: bronchospasm) Qty: 180 0RF doxycycline hyclate 100 mg tablet 100 mg PO BID Qty: 20 0RF albuterol sulfate 90 mcg/actuation HFA aerosol inhaler 2 puff inhalation Q4-6H PRN (Reason: shortness of breath or wheezing) Qty: 8.5 0RF albuterol sulfate 2.5 mg /3 mL (0.083 %) solution for nebulization 2.5 mg inhalation Q4-6H PRN (Reason: bronchospasm) Qty: 75 0RF Referrals: [facility] [place] Group] (severe persistent asthma) Stand Alone Forms: Against Medical Advice Print Language: Danish
[2025-03-01 09:33] VITALS: PULSE 95; RESP 22; O2SAT 97
[2025-03-01 09:42] LABS: MANUAL DIFF FLAG NO
[2025-03-01] MEDS: Magnesium Sulfate/H2O 2 GM/50 ML PIGGYBACK IV (09:42)
[2025-03-01 09:44] LABS: Basophils Absolute Auto 0.1 X10*3/uL (0.0-0.2); Basophils Percent Auto 1.4 % (0-2); Eosinophils Percent Auto 10.1 % (0-4); Hematocrit 37.4 % (42.0-52.0); Hemoglobin 11.9 g/dl (14.0-18.0); Imm Gran Abs Auto 0.03 X10*3/uL (0.00-0.03); Imm Gran Pct Auto 0.3 % (0.0-0.4); Lymphocytes Absolute Auto 2.5 X10*3/uL (1.2-4.9); Lymphocytes Percent Auto 25.3 % (20-40); Mean Corpuscular HGB Conc 31.8 g/dl (31.0-36.0); Mean Corpuscular Hemoglobin 27.4 pg (27.0-33.0); Mean Platelet Volume 8.7 fL (9.4-12.4); Monocytes Absolute Auto 0.9 X10*3/uL (0.1-1.2); Monocytes Percent Auto 8.5 % (2-11); Neutrophils Absolute Auto 5.4 x10*3/uL (2.0-8.3); Neutrophils Percent Auto 54.4 % (45-73); Platelet Count 266 X10*3/uL (160-400); Red Blood Count 4.35 X10*6/uL (4.60-5.80)
[2025-03-01] MEDS: Ketorolac Tromethamine 15 MG/ML VIAL IVPUSH (09:45)
[2025-03-01 09:51] LABS: VBG Base Excess 8.5 mmol/L; VBG HCO3 35 mmol/L (22-26); VBG pCO2 60 mmHg; VBG pH 7.37 (7.32-7.43); VBG pO2 64 mmHg
[2025-03-01 09:58] LABS: Alanine Aminotransferase 11 U/L (0-40); Albumin Level 4.1 g/dL (3.5-5.0); Alkaline Phosphatase 73 U/L (39-117); Anion Gap 11 (12-20); Aspartate Amino Transferase 21 U/L (5-37); Bilirubin Direct < 0.2 mg/dL (0.0-0.5); Bilirubin Total 0.1 mg/dL (0.0-1.0); Blood Urea Nitrogen 19 mg/dL (9-16); Calcium 9.3 mg/dL (8.4-10.2); Carbon Dioxide 32 mmol/L (22-29); Chloride 105 mmol/L (96-108); Creatinine Clr Calc Pharmacy 103.2; Estimated Glomerular Filt Rate > 60; Glucose Random 111 mg/dL (60-115); Magnesium 1.9 mg/dL (1.6-2.6); Potassium 3.9 mmol/L (3.3-5.1); Sodium 144 mmol/L (135-145); Total Protein 7.1 g/dL (6.5-8.0)
[2025-03-01 09:59] LABS: Venous Blood Gas Refer to POC result
[2025-03-01 10:05] LABS: Troponin-I High Sensitivity < 2.7 ng/L (<3.5-35.0)
[2025-03-01 10:21] VITALS: BP 119/71; PULSE 89; RESP 14; O2SAT 100
[2025-03-01 10:36] LABS: Influenza A PCR NEGATIVE (Negative); Influenza B PCR NEGATIVE (Negative); Resp Syncy Virus RNA Qual PCR NEGATIVE (Negative); SARS COV2 PCR INHOUSE NEGATIVE (Negative)
--- OUTSIDE RECORDS SUMMARY | 2025-03-01 11:03 | XMS_ITS | Clinical Summary ---
Author Organization [facility] Address [address] [place] [id number] Phone Care Team Providers Care Decorating Inspector Name Role Phone Unavailable Primary Care Provider Unavailabl e Medications albuterol HFA 108 (90 BASE) MCG/ACT inhalerIndicatio ns:Asthma, unspecified asthma severity, unspecified whether complicated, unspecified whether persistent Inhale 2 puffs every 4 (four) hours as needed for wheezing or shortness of breath. 1 Units 8 Active Immunizations Immunization Administration Dates Next Due DTaP 06/07/1996, 4,1992,09/12,1992 H1N1 08/15/2009 HPV Vaccine 9 Valent 03/03/2016 HPV, Quadrivalent 10/09/2013,08/16/2012 Hep B, ped/adol 02/11/1993,1992,1992 Hib (PRP-T) 08/15/1993, 3,1992,07/16 Influenza 09/13/2009, 8,07/08/2007,08/25,07/16/2005,08/28/2004,08/24/2003 ,08/11/2002,07/27/2000 Influenza, injectable, quadr ivalent, preservative free 10/09/2013 Influenza, injectable, trivalent 08/16/2012 Influenza, intranasal, trivalent 08/12/2011 MMR 03/08/1997,08/15/1993 Meningococcal Conj (Menactra) MCV4P 08/12/2011,1 OPV 06/07/1996, 4,1992,07/16 Td (adult) (MBL), 2 Lf tetan us toxoid, PF, adsorbed 08/28/2004 Tdap 06/06/2007 Varicella 06/06/2007,08/12/1998 Social History Tobacco Use Types Packs/Day Years Used Date Smoking Tobacco: Never Assessed Sex and Gender Information Value Date Recorded Sex Assigned at Not on file Legal Sex Male 5:21 PM EST Gender Identity Not on file Sexual Orientation Not on file Last Filed Vital Signs Vital Sign Reading Time Taken Comments Blood Pressure 135/69 03/03/2016 12:00 AM EDT Pulse 56 03/03/2016 12:00 AM EDT Temperature 36.6 ??C (97.9 ??F) 05/19/2016 12:00 AM E DT Respiratory Rate - - Oxygen Saturation 95% 01/07/2012 12:00 AM EDT Inhaled Oxygen Concentration - - Weight 76.4 kg (168 lb 6.4 oz) 05/19/2016 12:00 AM EDT Height 165.1 cm (5' 5 ) 03/03/2016 12:00 AM EDT Body Mass Index 28.02 03/03/2016 12:00 AM EDT Plan of Treatment Health Maintenance Due Date Last Done Comments DTaP,Tdap,and Td Vaccines (7 - Td or Tdap) 06/06/2017 06/06/2007, 08/28/2004, 06/07/1996, Additional history exists Influenza Vaccines (#1) 2024 10/09/19 14, 08/16/2012, 08/12/2011, Additional history exists COVID-19 Vaccine ( season) 2024 Hepatitis B Vaccines Completed 02/11/1993, 1992, 1992 HIB Vaccines Completed 08/15/1993, 10/29, 1992, Additional history exists IPV Vaccines Completed 06/07/1996, 10/28, 1992, Additional history exists MMR Vaccines Completed 03/08/1997, 08/15/1993 Varicella Vaccines Completed 06/06/2007, 08/12/1998 Meningococcal Vaccine Aged Out 08/12/2011, 007 No longer eligible based on patient's age to complete this topic HPV Vaccines Completed 03/03/2016, 09/27, 08/16/2012 Hepatitis A Vaccines Aged Out No long er eligible based on patient's age to complete this topic Men B Vaccine Aged Out No longer elig ible based on patient's age to complete this topic Pneumococcal Vaccine Aged Out No long er eligible based on patient's age to complete this topic
--- NOTE | 2025-03-01 12:24 | PC.NURSE ---
Patient wants to leave against medical advice. Room air oxygen saturation at 88%. PEGGY Sheppard aware. Pt refusing to remain in ED for further care/treatment. Risks of leaving AMA explained to patient, but pt continues to refuse. tobacco cutter (Hi Peña) also aware.
[2025-03-01 12:33] VITALS: BP 121/70; PULSE 90; RESP 13; TEMP 36.4; O2SAT 88
[2025-03-01 13:28] VITALS: BP 121/70; PULSE 90; RESP 13; TEMP 36.4; O2SAT 88
== END 2025-03-01 13:28 | disposition left against medical advice (07) ==
PROVIDERS: Physician Assistant; Emergency Provider Emergency Medicine
DX: J45.51 Severe persistent asthma with (acute) exacerbation (principal); J96.01 Acute respiratory failure with hypoxia; R51.9 Headache, unspecified; R05.9 Cough, unspecified; R00.0 Tachycardia, unspecified; Z79.899 Other long term (current) drug therapy; Z03.818 Encounter for observation for suspected exposure to other biological agents ruled out
CPT/HCPCS: 0241U; 36415; 71045; 80048; 80076; 82803; 83735; 84484; 85025; 93005; 94640; 96365; 96375; 99284; 99285; J1885; J3475

== ENCOUNTER → 2025-03-01 09:28 | Outpatient (BNV) | payer SELFPAY | PROVIDERS: Emergency Provider Emergency Medicine; Visit Provider Internal Medicine | DX: R00.0 Tachycardia, unspecified (principal) | CPT/HCPCS: 93010 ==

== ENCOUNTER → 2025-03-01 09:28 | Outpatient (BNV) | payer SELFPAY | PROVIDERS: Emergency Provider Emergency Medicine; Visit Provider Radiology Diagnostic Radiology | DX: R06.02 Shortness of breath (principal) | CPT/HCPCS: 71045 ==

== ENCOUNTER 2025-05-28 10:34 | Emergency (ER) | payer OTHER, SELFPAY ==
--- NOTE | ~2025-05-28 | XR_ITS ---
CLINICAL HISTORY: Pneumonia? Chest Radiograph Comparison: 03/01/25 Findings: No cardiomegaly. Normal mediastinal contours. No pneumothorax. No opacity. No pleural effusion. Normal upper abdomen. No acute fracture. Impression: No acute findings. This document has been electronically signed by: Radha Savage MD on 05/28/2025 13:39:01
[2025-05-28 10:35] VITALS: BP 139/87; PULSE 92; RESP 22; TEMP 37.1; O2SAT 93; BMI 19.7
--- NOTE | 2025-05-28 10:40 | ED_ITS ---
HPI - General Adult General Chief complaint: Dyspnea Stated complaint: diff breathing Time Seen by Provider: 05/28/25 11:10 Source: patient and family ( Significant other) Mode of arrival: ambulatory Limitations: no limitations History of Present Illness ED Provider: DR. Shirley HPI narrative: 35-year-old male with history of severe persistent asthma presented to the ER for evaluation of worsening of shortness of breath and nonproductive coughing for the last 3 days, patient reported that his symptoms is triggered by environmental and seasonal change and this is the typical time for aggravation of his asthma, O2 saturation the emergency department is 93% on room air. Never history of intubation or ICU admission, never been hospitalized for bad asthma in the past. No fever, no chills, no recent travel, no lower extremity swelling or tenderness. Patient is complaining or find out from scapular pain think is from coughing. Related Data Previous Rx's ?Medication ?Instructions ?Recorded albuterol sulfate 2.5 mg/3 mL 2.5 mg (3 mL) inhalation Q4-6H PRN 10/29/24 (0.083 %) solution for nebulization bronchospasm #75 m L albuterol sulfate 90 mcg/actuation 2 puff inhalation Q 4-6H PRN 10/29/24 aerosol inhaler shortness of breath or wheez ing #8.5 grams doxycycline hyclate 100 mg tablet 100 mg PO BID #20 ta bs 10/29/24 albuterol sulfate 2.5 mg/3 mL 2.5 mg (3 mL) inhalation Q4H PRN 11/26/24 (0.083 %) solution for nebulization bronchospasm #180 mL budesonide-formoterol HFA 160 2 puff inhalation BID #1 0.2 grams 11/26/24 mcg-4.5 mcg/actuation aerosol inhaler prednisone 20 mg tablet 20 mg PO DAILY #12 tabs 03/0 2/25 albuterol sulfate 5 mg/mL(0.5 %) 5 mg inhalation Q4H P RN shortness 03/01/25 solution for nebulization of breath or wheezing #75 mL azithromycin 250 mg tablet See Rx Instructions PO .COM PLEX #6 03/01/25 (Zithromax Z-Kristian) tabs budesonide 90 mcg/actuation breath 1 inh inhalation Q1 2H #1 ea 06/05/25 activated powder inhaler (Pulmicort Flexhaler) cetirizine 10 mg capsule (Zyrtec) 10 mg PO DAILY #30 c aps 03/01/25 prednisone 10 mg tablet See Taper PO DIRECTED #30 tabs 03/01/25 prednisone 10 mg tablets in a dose See Taper PO DAILY #30 ea 03/01/25 pack albuterol sulfate 90 mcg/actuation 2 puff inhalation Q 4-6H PRN 05/28/25 aerosol inhaler (Ventolin HFA) shortness of breath or wheezing #8.5 grams azithromycin 250 mg tablet See Rx Instructions PO .COM PLEX #6 05/28/25 (Zithromax) tabs guaifenesin 200 mg/5 mL oral liquid 200 mg (5 mL) PO Q 4H PRN cough 05/28/25 #118 mL prednisone 20 mg tablet 20 mg PO BID #10 tabs Allergies Allergy/AdvReac Type Severity Reaction Status Date / Time No Known Allergies Allergy Verified 05/28/25 10:36 Review of Systems 2 Review of Systems: All other systems are reviewed and are negative Constitutional: Reports as per HPI and Reports no additional constitutional complaints Eyes: Reports as per HPI and Reports no additional eye complaints Reports system reviewed and no additional complaints, except as documented Cardiovascular: Reports as per HPI and Reports no additional cardiovascular complaints Respiratory: Reports as per HPI and Reports no additional respiratory complaints Gastrointestinal: Reports as per HPI and Reports no additional gastrointestinal complaints Genitourinary: Reports no additional female genitourinary complaints Musculoskeletal: Reports no additional musculoskeletal complaints Skin/Breast: Reports system reviewed and no additional complaints, except as docu Psychiatric: Reports no additional psychiatric complaints Endocrine: Reports no additional endocrine complaints Hematologic/Lymphatic: Reports no additional hematologic/lymphatic complaints Allergic/Immunologic: Reports no additional allergic/immunologic complaints Reports system reviewed and no additional complaints, except as documented and Reports Abnormal speech present [facility] Social History Social History Smoked in Last 30 Days: Yes Use of substances other than those prescribed or required for medical reasons: No Advance Directives: No Advance Directives Information Provided: No Physical Exam ED Vital Signs: Vital Signs - 24 hr 05/28/25 10:35 05/28/25 11:02 05/28/25 12:00 Temperature 98.7 F Pulse Rate 92 92 Respiratory Rate 22 H 23 H Blood Pressure 139/87 Pulse Oximetry 93 82 L Oxygen Delivery Method Room Air Room Air BMI result Body Mass Index 19.7 Vital signs have been reviewed and appear to be correct. Blood pressure elevated. Heart rate normal. Slightly tachypneic, Temperature normal. Oxygen saturation normal. Appearance: Alert. Oriented X3. No acute distress. Head: Normal external exam. Normocephalic. Atraumatic. No Rodas signs noted. No raccoon eyes noted Eyes: PERRLA. EOMI. Conjunctiva and sclera normal. Eyelids normal. ENT: TM's Normal. Pharynx normal. Uvula midline. Moist mucous membranes. No trismus noted. No drooling noted. No muffled voice noted. Neck: Normal inspection. Neck supple. FROM. No adenopathy. Thyroid Normal. No meningeal signs. No neck mass noted. CVS: Normal heart rate and rhythm. Heart sound normal. No murmurs noted. Pulses normal throughout. Respiratory: No respiratory distress. Painless inspiration. diffuse expiratory wheezing with prolonged expiration, decreased air entry bilaterally. No accessory muscle usage noted or decreased air movement noted. Abdomen: Soft and nontender. Bowel sounds normal in all 4 quadrants. No distention noted. No organomegaly noted. No visible injury noted. Back: No CVA tenderness. Full range of motion noted. Skin: Skin warm and dry. Normal skin color. Normal skin turgor. No rashes/lesions/lacerations noted. Extremities: No lower extremity edema. Extremities exhibit normal range of motion. Extremities nontender. Neuro: Oriented X 3. Cranial nerve exam: II-XII are grossly intact No motor deficit. No sensory deficit. Reflexes normal. Course Course Course Narrative: RME: 34 year male history of asthma presents to ED for shortness of breath, wheezing, and coughing for the past couple of days. Patient states no relief with albuterol inhaler. Patient is a smoker. Patient denies any recent long travel recent surgery. Lungs positive for diffuse wheezing. O2 sat between 91 94%. Labs chest x-ray albuterol Mag Solu-Medrol ordered Reevaluation(s) Reevaluation #1: patient is still complaining of wheezing and shortness of breath, exertional pulse ox was 82% on room air, will give the patient another bronchodilator. Time: 12:38 Reevaluation #2: Patient is AAO x3, still complaining of shortness of breath very mild wheezing, patient basically presenting with acute asthma exacerbation with acute hypoxic respiratory failure, I discussed with the patient at length the need of hospitalization , continuous need of supplemental oxygen, and continuous medical monitoring of his condition, patient also understood the risk of leaving the hospital in this condition including hypoxia/ hypoxemia with vital organ damage as a result, I even explained that is a potential risk in his condition, patient still refused to be admitted to the hospital he is requesting a course of Z-Kristian with a prescribed medication he is going home with and his significant other is supporting the patient's decision stated that she will monitor the patient at home and will bring him back if needed. Patient signed against medical advice. patient had a history of of similar presentation and signing against medical advice in the past. Time: 14:00 Medications Administered Discontinued Medications Generic Name Dose Route Start Last Admin Trade Name Freq PRN Reason Stop Dose Admin Albuterol Sulfate 2.5 mg/ 5 mg 05/28/25 12:32 05/28/25 12:39 Albuterol Sulfate 2.5 mg INHALE 05/28/25 12:33 5 mg ONCE ONE Administration Albuterol Sulfate 2.5 mg/ 0 mg 05/28/25 11:01 05/28/25 11:08 Albuterol/Ipratropium 3 ml INHALE 05/28/25 11:02 5 dose ONCE ONE Administration Magnesium Sulfate 2 gm in 50 mls @ 150 mls/hr 05/28/25 10:39 05/28/25 11:43 Magnesium Sulfate/H2o IV 05/28/25 10:58 Infused ONCE ONE Infusion Acetaminophen 1,000 mg in 100 mls @ 400 mls/hr 05/28/25 11:18 05/28/25 11:43 Ofirmev IV 05/28/25 11:32 Infused ONCE ONE Infusion Methylprednisolone Sodium Succinate 125 mg 05/28/25 10:39 05/28/25 11:06 Methylprednisolone Sod Succ 125 Mg/2 Ml Vial IVPUSH 05/28/25 10:40 125 mg ONCE ONE Administration Methylprednisolone Sodium Succinate 125 mg 05/28/25 11:18 05/28/25 11:21 Methylprednisolone Sod Succ 125 Mg/2 Ml Vial IVPUSH 05/28/25 11:19 Not Given ONCE ONE Medical Decision Making Differential Diagnosis Differential Diagnoses: The differential diagnosis associated with the presentation includes ( Pneumonia, pneumothorax, pleural effusion, hypoxia, hypoxemia, asthma exacerbation, acute respiratory failure with hypoxia.) Admission/Observation Consideration of admission/observation: Escalation of care including admission/observation considered Lab Data MDM Lab Attestation statement: I reviewed the patient's lab results. 05/28/25 10:47 05/28/25 10:47 Labs: Lab Results 05/28/25 Range/Units 10:47 WBC 9.3 (4.8-10.8) X10*3/uL RBC 4.68 (4.60-5.80) X10*6/uL Hgb 13.3 L (14.0-18.0) g/dl Hct 38.0 L (42.0-52.0) % MCV 81.2 (80.0-98.0) fL MCH 28.4 (27.0-33.0) pg MCHC 35.0 (31.0-36.0) g/dl RDW 15.0 (11.0-16.0) % Plt Count 313 (160-400) X10*3/uL MPV 8.7 L (9.4-12.4) fL Immature Gran % (Auto) 0.3 (0.0-0.4) % Neut % (Auto) 73.0 (45-73) % Lymph % (Auto) 15.3 L (20-40) % [place] % (Auto) 4.6 (2-11) % Eos % (Auto) 5.8 H (0-4) % Baso % (Auto) 1.0 (0-2) % Lymph # (Auto) 1.4 (1.2-4.9) X10*3/uL [place] # (Auto) 0.4 (0.1-1.2) X10*3/uL Eos # (Auto) 0.5 H (0.0-0.4) X10*3/uL Baso # (Auto) 0.1 (0.0-0.2) X10*3/uL Abs Immat Gran (auto) 0.03 (0.00-0.03) X10*3/uL Absolute Neuts (auto) 6.8 (2.0-8.3) x10*3/uL Absolute Nucleated RBC 0.000 (0.0-0.012) X10*3/uL Nucleated RBC % (auto) 0.0 (0.0-0.2) /100WBC Sodium 143 (135-145) mmol/L Potassium 3.7 (3.3-5.1) mmol/L Chloride 109 H (96-108) mmol/L Carbon Dioxide 24 (22-29) mmol/L Anion Gap 14 (12-20) BUN 10 (9-16) mg/dL Creatinine 0.96 (0.5-1.4) mg/dL Estim Creat Clear Calc 91.0 Estimated GFR > 60 Random Glucose 102 (60-115) mg/dL Calcium 9.3 (8.4-10.2) mg/dL Total Bilirubin 0.5 (0.0-1.0) mg/dL AST 24 (5-37) U/L ALT 12 (0-40) U/L Alkaline Phosphatase 56 (39-117) U/L Total Protein 7.4 (6.5-8.0) g/dL Albumin 4.9 (3.5-5.0) g/dL COVID-19 (ALFA) Negative (Negative) COVID-19 Clin Com See Note Influenza Type A (MARTIN) Negative (Negative) Influenza Type B (MARTIN) Negative (Negative) Influenza A & B Note See Note S. pyogenes GrpA MARTIN Negative (Negative) Independent Interpretation I performed an independent interpretation of an: Plain X-Ray ( Chest: No acute intrathoracic pathology.) Radiology Impression Discussion of test interpretation with radiology: I have reviewed the radiologist's reading. Critical Care Time Critical Care Time Critical Care Time: Yes Total Critical Care Time: 60 Attestation: The patient was critically ill with a high probability of imminent or life- threatening deterioration. I spent greater than 30 minutes of discontinuous time evaluating the patient, delivering critical care at the bedside, discussing evaluating data with consultants. Critical care time does not include time spent performing separately billable procedures or teaching. Time spent performing critical care was 60 minutes. Discharge Plan Discharge Clinical Impression: Asthma with exacerbation, Acute hypoxic respiratory failure Patient Disposition: Left Against Medical Advice Instructions: Asthma (ED) Additional Instructions: police returned to the ED at any time you feel you are getting worse or unable to breathe. Prescriptions: New albuterol sulfate [Ventolin HFA] 90 mcg/actuation HFA aerosol inhaler 2 puff inhalation Q4-6H PRN (Reason: shortness of breath or wheezing) Qty: 8.5 0RF azithromycin [Zithromax] 250 mg tablet See Rx Instructions .ROUTE .COMPLEX Qty: 6 0RF Rx Instructions: For 250 mg dose pack: take 500 mg today (day 1), then 250 mg for 4 days (days 2-5) prednisone 20 mg tablet 20 mg PO BID Qty: 10 0RF guaifenesin 200 mg/5 mL liquid 200 mg PO Q4H PRN (Reason: cough) Qty: 118 0RF No Action prednisone 20 mg tablet 20 mg PO DAILY Qty: 12 0RF Rx Instructions: Take 3 tablets by mouth daily for 2 days then take 2 tablets by mouth daily for 3 days. budesonide-formoterol 160-4.5 mcg/actuation HFA aerosol inhaler 2 puff inhalation BID Qty: 10.2 0RF albuterol sulfate 2.5 mg /3 mL (0.083 %) solution for nebulization 2.5 mg inhalation Q4H PRN (Reason: bronchospasm) Qty: 180 0RF prednisone 10 mg tablets,dose pack See Taper PO DAILY Qty: 30 0RF Taper: Prednisone 40 mg daily for 3 Days and 0 Hour 30 mg daily for 3 Days and 0 Hour 20 mg daily for 3 Days and 0 Hour 10 mg daily for 3 Days and 0 Hour Rx Instructions: 40 mg Daily x3 days, 30 mg daily x3 days, 20 mg daily x3 days, 10 mg daily x3 days azithromycin [Zithromax Z-Kristian] 250 mg tablet See Rx Instructions PO .COMPLEX Qty: 6 0RF Rx Instructions: take 500 mg today (day 1), then 250 mg for 4 days (days 2-5) Pulmicort Flexhaler 90 mcg/actuation aerosol powdr breath activated 1 inh inhalation Q12H Qty: 1 0RF Zyrtec 10 mg capsule 10 mg PO DAILY Qty: 30 0RF albuterol sulfate 5 mg/mL solution for nebulization 5 mg inhalation Q4H PRN (Reason: shortness of breath or wheezing) Qty: 75 0RF Rx Instructions: until breathing returns to target peak flow/parameters prednisone 10 mg tablet See Taper PO DIRECTED Qty: 30 0RF Taper: Prednisone 40 mg daily for 3 Days and 0 Hour 30 mg daily for 3 Days and 0 Hour 20 mg daily for 3 Days and 0 Hour 10 mg daily for 3 Days and 0 Hour Rx Instructions: see taper instructions; 40 mg Daily x3 days, 30 mg daily x3 days, 20 mg daily x3 days, 10 mg daily x3 days doxycycline hyclate 100 mg tablet 100 mg PO BID Qty: 20 0RF albuterol sulfate 90 mcg/actuation HFA aerosol inhaler 2 puff inhalation Q4-6H PRN (Reason: shortness of breath or wheezing) Qty: 8.5 0RF albuterol sulfate 2.5 mg /3 mL (0.083 %) solution for nebulization 2.5 mg inhalation Q4-6H PRN (Reason: bronchospasm) Qty: 75 0RF Stand Alone Forms: Against Medical Advice Interventions: ED Discharge Assessment Last Done: 05/28/25 13:37 Discharge Date/Time: 05/28/25 13:38 Print Language: Israeli
[2025-05-28 10:52] LABS: MANUAL DIFF FLAG NO
[2025-05-28 10:59] LABS: Hematocrit 38.0 % (42.0-52.0); Hemoglobin 13.3 g/dl (14.0-18.0); Imm Gran Abs Auto 0.03 X10*3/uL (0.00-0.03); Imm Gran Pct Auto 0.3 % (0.0-0.4); Lymphocytes Absolute Auto 1.4 X10*3/uL (1.2-4.9); Mean Corpuscular HGB Conc 35.0 g/dl (31.0-36.0); Mean Corpuscular Hemoglobin 28.4 pg (27.0-33.0); Mean Corpuscular Volume 81.2 fL (80.0-98.0); NRBC Abs Auto 0.000 X10*3/uL (0.0-0.012); NRBC Pct Auto 0.0 /100WBC (0.0-0.2); Platelet Count 313 X10*3/uL (160-400); Red Blood Count 4.68 X10*6/uL (4.60-5.80); White Blood Count 9.3 X10*3/uL (4.8-10.8)
[2025-05-28 11:02] VITALS: PULSE 92; RESP 23; O2SAT 93
[2025-05-28 11:06] LABS: IDNOW Serial# 08D9AD1C; Strep A Nucleic Acid Negative (Negative)
[2025-05-28] MEDS: Magnesium Sulfate/H2O 2 GM/50 ML PIGGYBACK IV (11:06)
[2025-05-28] MEDS: Albuterol Sulfate 2.5 MG, Albuterol/Iprat 2.5/0.5MG 3 ML 3 ML INHALE (11:08)
[2025-05-28 11:09] LABS: Alanine Aminotransferase 12 U/L (0-40); Albumin Level 4.9 g/dL (3.5-5.0); Alkaline Phosphatase 56 U/L (39-117); Anion Gap 14 (12-20); Aspartate Amino Transferase 24 U/L (5-37); Blood Urea Nitrogen 10 mg/dL (9-16); Calcium 9.3 mg/dL (8.4-10.2); Carbon Dioxide 24 mmol/L (22-29); Chloride 109 mmol/L (96-108); Creatinine Clr Calc Pharmacy 91.0; Estimated Glomerular Filt Rate > 60; Potassium 3.7 mmol/L (3.3-5.1); Sodium 143 mmol/L (135-145); Total Protein 7.4 g/dL (6.5-8.0)
[2025-05-28 11:13] LABS: IDNOW Serial# 58CA691E
[2025-05-28 11:14] LABS: COVID-19 Test Negative (Negative); IDNOW Serial# 55D5AD1C; Influenza B2 Negative (Negative)
--- OUTSIDE RECORDS SUMMARY | 2025-05-28 11:20 | XMS_ITS | Encounter Summary ---
Author Organization [facility] Address [address] [place] [address] [place], [place] [id number] Phone Care Team Providers Care Home Care Nurse Name Role Phone Josseline Abrams Primary Care Provide r Guy Josue MD Unavailable [phone] Mario Ferguson MD Unavailable [phone] Sarah Dupont MD Primary Care Provid er Anthony Mayen MD Primary Care Provider [phone] Reason for Referral * MRI/CAT Scan - Closed Specialty Diagnoses / Procedures Referred By Contac t Referred To Contact Radiology Diagnoses Low back pain, unspecified back pain laterality, unspecified chronicity, unspecified whether sciatica present Procedures MRI Lumbar Spine Kamaljit Navarrete DO Phone: tel: fax: mailto:[email or web address] Referral ID Status Reason Start Date Expiration Date Visits Re quested Visits Authorized [id number] Closed 06/22/2019 06/22/2020 1 1 * MRI/CAT Scan - Closed Specialty Diagnoses / Procedures Referred By Contac t Referred To Contact Radiology Diagnoses Pain in thoracic spine Procedures MRI Thoracic Spine Kamaljit Navarrete DO Phone: tel: fax: mailto:[email or web address] Referral ID Status Reason Start Date Expiration Date Visits Re quested Visits Authorized [id number] Closed 06/22/2019 06/22/2020 1 1 Encounter Details Date Type Department Care Team (Late st Contact Info) Description 06/22/2019 Ancillary Orders Virtual Department [address] [place] [address] Kamaljit Navarrete DO [address] [place] [address] [email or web address] Pain in thoracic spine; Low back pain, unspecified back pain laterality, unspecified chronicity, unspecified whether sciatica present Social History Tobacco Use Types Packs/Day Years Used Date Smoking Tobacco: Every Day Cigarettes Smokeless Tobacco: Never Alcohol Use Standard Drinks/Week Comments Yes 0 (1 standard drink = 0.6 oz pur e alcohol) Sex and Gender Information Value Date Recorded Sex Assigned at Male 09/04/2023 8:35 PM EST Legal Sex Male 8:59 PM EDT Gender Identity Male 09/04/2023 8:35 PM EST Sexual Orientation Straight 09/04/2023 8: 35 PM EST 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 Mild broad-based disc protrusion with focal posterolateral/proximal foraminal annular tear, with RIGHT subarticular recess narrowing. No deviation or compression of the nerve roots, but the disc may contact the traversing RIGHT S1 nerve root. Correlate for RIGHT S1 radicular symptoms. 2. No other levels of significant canal or neural foraminal stenosis. POS - [id number] Edited by: Patrizia Quiles on 07/07/2019 8:59 AM Narrative 07/07/2019 9:01 AM EDT EXAM: MRI LUMBAR SPINE (NEURO) WITHOUT CONTRAST HISTORY: Low back pain, unspecified back pain laterality, unspecified chronicity, unspecified whether sciatica present TECHNIQUE: MRI lumbar spine without contrast: Sagittal T1, sagittal T2 and sagittal STIR, axial T1 and T2 sequences. COMPARISON: None. FINDINGS: BONES: Bone marrow signal is normal. Lumbar vertebrae are normal in height and alignment. There is no fracture. There is no bone marrow edema. Normal lumbar lordosis. PARASPINAL STRUCTURES: The paraspinal soft tissues are normal. CONUS MEDULLARIS AND CAUDA EQUINA: The conus medullaris is normal, terminating at the mid L1 level. The cauda equina nerve roots are distributed normally. SPINAL LEVELS: T11-T12: Normal disc height and signal. No disc herniation. No canal or neural foraminal stenosis. T12-L1: Normal disc height and signal. No disc herniation. No canal or neural foraminal stenosis. L1-L2: Normal disc height and signal. No disc herniation. No canal or neural foraminal stenosis. L2-L3: Normal disc height and signal. No disc herniation. No canal or neural foraminal stenosis. L3-L4: Normal disc height and signal. No disc herniation. No canal or neural foraminal stenosis. L4-L5: Normal disc height and signal. No disc herniation. No canal or neural foraminal stenosis. L5-S1: Mild degenerative disc desiccation with diminished central T2 signal and mild loss of disc height. Broad-based mild disc protrusion with focal annular tear along the RIGHT posterolateral/proximal foraminal disc. No canal stenosis. The disc may contact the traversing RIGHT S1 nerve root, without compression or deviation of the nerve root (axial image #16, sagittal image #10). No significant neural foraminal stenosis. No compression of the exiting L5 nerves. Procedure Note Carri Joaquin MD - 07/07/2019 EXAM: MRI LUMBAR SPINE (NEURO) WITHOUT CONTRAST HISTORY: Low back pain, unspecified back pain laterality, unspecifiedchronicity, unspecified whether sciatica present TECHNIQUE: MRI lumbar spine without contrast: Sagittal T1, sagittal T2 andsagittal STIR, axial T1 and T2 sequences. COMPARISON: None. FINDINGS: BONES: Bone marrow signal is normal. Lumbar vertebrae are normal in heightand alignment. There is no fracture. There is no bone marrow edema. Normallumbar lordosis. PARASPINAL STRUCTURES: The paraspinal soft tissues are normal. CONUS MEDULLARIS AND CAUDA EQUINA: The conus medullaris is normal,terminating at the mid L1 level. The cauda equina nerve roots aredistributed normally. SPINAL LEVELS: T11-T12: Normal disc height and signal. No disc herniation. No canal orneural foraminal stenosis. T12-L1: Normal disc height and signal. No disc herniation. No canal orneural foraminal stenosis. L1-L2: Normal disc height and signal. No disc herniation. No canal orneural foraminal stenosis. L2-L3: Normal disc height and signal. No disc herniation. No canal orneural foraminal stenosis. L3-L4: Normal disc height and signal. No disc herniation. No canal orneural foraminal stenosis. L4-L5: Normal disc height and signal. No disc herniation. No canal orneural foraminal stenosis. L5-S1: Mild degenerative disc desiccation with diminished central [id number] and mild loss of disc height. Broad-based mild disc protrusion withfocal annular tear along the RIGHT posterolateral/proximal foraminal disc.No canal stenosis. The disc may contact the traversing RIGHT S1 nerveroot, without compression or deviation of the nerve root (axial image #16,sagittal image #10). No significant neural foraminal stenosis. Nocompression of the exiting L5 nerves. IMPRESSION: 1. Mild broad-based disc protrusion with focal posterolateral/proximalforaminal annular tear, with RIGHT subarticular recess narrowing. Nodeviation or compression of the nerve roots, but the disc may contact thetraversing RIGHT S1 nerve root. Correlate for RIGHT S1 radicularsymptoms. 2. No other levels of significant canal or neural foraminal stenosis. POS - [id number] Edited by: Patrizia Quiles on 07/07/2019 8:59 AM us Kamaljit Navarrete DO IMG MR XSPECIALTY Final Resu lt * MRI THORACIC SPINE (NEURO) WITHOUT CONTRAST (07/06/2019 2:55 PM EDT) Anatomical Region Laterality Modality T-spine Magnetic Resonan ce 07/06/2019 6:01 PM EDT Impressions 07/07/2019 9:00 AM EDT No canal or neuroforaminal stenosis in the thoracic spine. Normal thoracic spine alignment. Normal thoracic spinal cord. Tiny disc protrusions at T4-T5 and T7-T8, without significant canal stenosis. POS - [email or web address] Narrative 07/07/2019 9:00 AM EDT EXAM: MRI THORACIC SPINE (NEURO) WITHOUT CONTRAST HISTORY: Strong pressure/pain in between shoulder blades for one year. No recent trauma. TECHNIQUE: Multiplanar multisequence MRI imaging of the thoracic spine: Sagittal T2, sagittal T1, sagittal STIR, axial T2, axial T1 sequences. COMPARISON: None. FINDINGS: Bone marrow signal is normal. There is normal thoracic kyphosis. Thoracic vertebrae are normal in height and alignment. There is no bone marrow edema or fracture. There is normal thoracic kyphosis. There is mild degenerative disc desiccation at T3- T4, T5-T6, T7-T8 and T9-T10 with negligible disc height loss. There is no paraspinous edema or mass. The cervical spinal cord is normal. There is no cord edema. There is a very small RIGHT paracentral disc protrusion at T7-T8 with mild focal indentation upon the anterior thecal sac, without significant canal stenosis. At T4-T5 there is a tiny LEFT paracentral disc protrusion with mild indentation upon the thecal sac, without significant canal stenosis. No large disc herniations in the thoracic spine. No canal or neural foraminal stenosis. The neuroforamina are widely patent. Procedure Note Carri Joaquin MD - 07/07/2019 EXAM: MRI THORACIC SPINE (NEURO) WITHOUT CONTRAST HISTORY: Strong pressure/pain in between shoulder blades for one year. Norecent trauma. TECHNIQUE: Multiplanar multisequence MRI imaging of the thoracic spine:Sagittal T2, sagittal T1, sagittal STIR, axial T2, axial T1 sequences. COMPARISON: None. FINDINGS: Bone marrow signal is normal. There is normal thoracic kyphosis. Thoracicvertebrae are normal in height and alignment. There is no bone marrowedema or fracture. There is normal thoracic kyphosis. There is milddegenerative disc desiccation at T3- T4, T5-T6, T7-T8 and T9-T10 withnegligible disc height loss. There is no paraspinous edema or mass. The cervical spinal cord is normal. There is no cord edema. There is sander small RIGHT paracentral disc protrusion at T7-T8 with mild focalindentation upon the anterior thecal sac, without significant canalstenosis. At T4-T5 there is a tiny LEFT paracentral disc protrusion withmild indentation upon the thecal sac, without significant canalstenosis. No large disc herniations in the thoracic spine. No canal or neuralforaminal stenosis. The neuroforamina are widely patent. IMPRESSION: No canal or neuroforaminal stenosis in the thoracic spine. Normal thoracicspine alignment. Normal thoracic spinal cord. Tiny disc protrusions at T4-T5 and T7-T8, without significant canalstenosis. POS - [email or web address] Kamaljit Navarrete DO IMG MR XSPECIALTY Final Resu lt documented in this encounter Visit Diagnoses Diagnosis Pain in thoracic spine Low back pain, unspecified back pain laterality, unspecified chronicity, unspecified whether sciatica present Low back pain, unspecified back pain laterality, unspecified chronicity, unspecified whether sciatica present Pain in thoracic spine documented in this encounter Additional Health Concerns Infection Onset Date Last Indicated Resolved Time CoV-Risk 11/11/2024 11/11/2024 11/22/2024 1:24 AM EST documented as of this encounter Care Teams Home Care Nurse Relationship Specialty Start Date End Date Josseline Abrams PA [address] [place] [phone] [email or web address] PCP - General 02/08/19 03/08/22 Sarah Dupont MD [address] [place] [phone] [email or web address] PCP - General Family Medicine 03/09/22 08/06/24 Anthony Mayen MD [address] [place] [address] [email or web address] PCP - General 10/28/24 Guy Josue MD [address] [place] [address], [address] [place] [address] [email or web address] Insurance Assigned Provider Internal Medicine 02/08/19 08/06/24 Mario Ferguson MD [address] [place] [address] [email or web address] Insurance Assigned Provider 05/28/18 03/02/20 documented as of this encounter Additional Source Comments The information contained in this document represents components of the legal health record. It is not the complete legal health record.[facility]
--- OUTSIDE RECORDS SUMMARY | 2025-05-28 11:20 | XMS_ITS | Encounter Summary ---
Author Organization [facility] Address [address] [facility] [address] [place] [address] Phone Care Team Providers Care Dietetic Aide Name Role Phone Josseline Abrams Primary Care Provide r Guy Josue MD Unavailable [phone] Mario Ferguson MD Unavailable [phone] Sarah Dupont MD Primary Care Provid er Anthony Mayen MD Primary Care Provider [phone] Encounter Details Date Type Department Care Team (Late st Contact Info) Description 06/22/2019 Procedure Pass [facility], [address] [address] Social History Tobacco Use Types Packs/Day Years [...] 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 on file Not on file documented as of this encounter Plan of Treatment Not on file documented as of this encounter Visit Diagnoses Not on filedocumented in this encounter Additional Health Concerns Infection Onset Date Last Indicated Resolved Time CoV-Risk 11/11/2024 11/11/2024 11/22/2024 1:24 AM EST documented as of this encounter Care Teams Dietetic Aide Relationship Specialty Start Date End Date Josseline Abrams PA [address] [place] [phone] [email or web address] PCP - General 02/08/19 03/08/22 Sarah Dupont MD [address] [place] [address] [email or web address] PCP - General Family Medicine 03/09/22 08/06/24 Anthony Mayen MD [address] [place] [address] [email or web address] PCP - General 10/28/24 Guy Josue MD [address] [place] [address], [address] [place] [address] [email or web address] Insurance Assigned Provider Internal Medicine 02/08/19 08/06/24 Mario Ferguson MD [address] [place] [phone] [email or web address] Insurance Assigned Provider 05/28/18 03/02/20 documented as of this encounter Additional Source Comments The information contained in this document represents components of the legal health record. It is not the complete legal health record.[facility]
--- OUTSIDE RECORDS SUMMARY | 2025-05-28 11:20 | XMS_ITS | Encounter Summary ---
Author Organization [facility] Address [address] [place] [address] Phone Care Team Providers Care Fuel Agent Name Role Phone Damon Jones MD Primary Care Provider [phone] Encounter Details Date Type Department Care Team (Late st Contact Info) Description 05/05/2017 Conversion Encounter [facility] - [address], [address] [place] [address] Damon Jones MD [address] [place] [address] Social History Tobacco Use Types Packs/Day Years [...] on filedocumented in this encounter Care Teams Fuel Agent Relationship Specialty Start Date End Date Damon Jones MD [address] [place] [address] PCP - General 11/17/16 04/08/21 documented as of this encounter
--- OUTSIDE RECORDS SUMMARY | 2025-05-28 11:20 | XMS_ITS | Clinical Summary ---
Author Organization [facility] Address [address] [place] [address] Phone Care Team Providers Care Instrumentation Engineering Technician Name Role Phone Unavailable Primary Care Provider [...] 56 03/03/2016 12:00 AM EDT Temperature 36.6 C (97.9 F) 05/19/2016 12:00 AM EDT Respiratory Rate - - Oxygen Saturation 95% [...] 06/06/2017 06/06/2007, 08/28/2004, 06/07/1996, Additional history exists COVID-19 Vaccine ( season) 2024 Influenza Vaccines (#1) 2025 10/09/19 14, 08/16/2012, 08/12/2011, Additional history exists Hepatitis B Vaccines Completed 02/11/1993, 1992, 1992 [...]
--- OUTSIDE RECORDS SUMMARY | 2025-05-28 11:20 | XMS_ITS | Encounter Summary ---
Author Organization [facility] Address [address] [facility] [address] [place] [address] Phone Care Team Providers Care Corporate Controller Name Role Phone Josseline Abrams Primary Care Provide r Guy Josue MD Unavailable [phone] Mario Ferguson MD Unavailable [phone] Sarah Dupont MD Primary Care Provid er Anthony Mayen MD Primary Care Provider [phone] Encounter Details Date Type Department Care Team (Late st Contact Info) Description 06/22/2019 Procedure Pass [facility], [address] [address] Social History Tobacco Use Types Packs/Day Years [...] 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 Not on file Not on file documented as of this encounter Plan of Treatment Not on file documented as of this encounter Visit Diagnoses Not on filedocumented in this encounter Additional Health Concerns Infection Onset Date Last Indicated Resolved Time CoV-Risk 11/11/2024 11/11/2024 11/22/2024 1:24 AM EST documented as of this encounter Care Teams Corporate Controller Relationship Specialty Start Date End Date Josseline Abrams PA [address] [place] [phone] [email or web address] PCP - General 02/08/19 03/08/22 Sarah Dupont MD [address] [place] [address] [email or web address] PCP - General Family Medicine 03/09/22 08/06/24 Anthony Mayen MD [address] [place] [address] [email or web address] PCP - General 10/28/24 Guy Josue MD [address] [place] [address], [address] [place] [address] [email or web address] Insurance Assigned Provider Internal Medicine 02/08/19 08/06/24 Mario Ferguson MD [address] [place] [phone] [email or web address] Insurance Assigned Provider 05/28/18 03/02/20 documented as of this encounter Additional Source Comments The information contained in this document represents components of the legal health record. It is not the complete legal health record.[facility]
--- OUTSIDE RECORDS SUMMARY | 2025-05-28 11:20 | XMS_ITS | Clinical Summary ---
Author Organization [facility] Address [address] [facility] [address] [place], [place] [id number] Phone Care Team Providers Care Bullard Machine Operator Name Role Phone Anthony Mayen MD Primary Care Provider Allergies No known active allergies Medications albuterol 2.5 mg /3 mL (0.083 %) nebulizer solution Take 3 mL (2.5 mg total) by nebulization every 6 (six) hours as needed. 10 vial 3 9 Active nabumetone (RELAFEN) 750 MG tablet TAKE 1 TABLET BY MOUTH UP TO TWICE A DAY NEEDED FOR PAIN 0 9 Active gabapentin (NEURONTIN) 300 MG capsule TAKE 1 TABLET BY MOUTH AT NIGHT, INCREASE TO TWICE DAILY THEN THREE TIMES DAILY TOLERATED 0 9 Active diclofenac sodium (VOLTAREN) 75 MG EC tablet TAKE 1 TAB TWICE DAILY NEEDED FOR PAIN. TAKE WITH FOOD 0 9 Active DULoxetine (CYMBALTA) 30 MG capsule Take 1 capsule (30 mg total) by mouth daily. 30 capsule 1 9 Active Additional Information Patient not taking.Reported on 10/17/2019 traZODone (DESYREL) 50 MG tablet TAKE 2 TABLETS (100 MG TOTAL) BY MOUTH NIGHTLY AT BEDTIME. 60 tablet 1 9 Active Additional Information Patient not taking.Reported on 11/11/2024 albuterol 90 mcg/actuation inhaler TAKE 2 PUFFS BY MOUTH EVERY 4 HOURS NEEDED FOR WHEEZE 1 Inhaler 0 Active albuterol 90 mcg/actuation inhaler Inhale 2 puffs into the lungs every 4 (four) hours as needed for wheezing. 18 g 3 Active albuterol 2.5 mg /3 mL (0.083 %) nebulizer solution Take 3 mL (2.5 mg total) by nebulization every 4 (four) hours as needed. 90 mL 3 Active albuterol 2.5 mg /3 mL (0.083 %) nebulizer solution Take 3 mL (2.5 mg total) by nebulization every 6 (six) hours as needed. 100 mL 4 Active albuterol 90 mcg/actuation inhaler Inhale 2 puffs into the lungs every 6 (six) hours as needed. 18 g 4 Active Active Problems Problem Noted Date Diagnosed Date Pain in thoracic spine 03/06/2019 Chronic bilateral low back pain without sciatica 03/06/2019 Immunizations Immunization Administration Dates Next Due DTaP 06/07/1996, 4,1992,09/12,1992 [id number] FORMULATION 08/15/2009 HPV,quadrivalent 10/09/2013,08/16/2012 HPV9 03/03/2016 Hepatitis B 02/11/1993,1992,1992 Hib,PRP-T 08/15/1993, 3,1992,07/16 INFLUENZA, SPLIT VIRUS, TRIV ALENT W/ PRESERVATIVE IM 08/16/2012 Influenza Quadrivalent Prese rvative Free IM 10/09/2013 Influenza quadrivalent nasal 08/12/2011 Influenza, Unspecified Formulation 09/13,07/06/2008,07/08/2007,08/25,07/16/2005,08/28/2004,08/24/2003 ,08/11/2002,07/27/2000 MMR 03/08/1997,08/15/1993 Meningococcal MCV4P 08/12/2011,07/08/2007 PPD Test 03/03/2016,10/09/2013 Polio - OPV 06/07/1996, 4,1992,07/16 Td (adult),2 Lf Tetanus Toxo id, PF, Adsorbed 08/28/2004 Tdap 06/06/2007 Varicella 06/06/2007,08/12/1998 Family History Medical History Relation Comments Heart disease Paternal Grandmother Relation Status Comments Father Alive Maternal Grandfather Maternal Grandmother Mother Paternal Grandfather Paternal Grandmother Alive Social History Tobacco Use Types Packs/Day Years Used Date Smoking Tobacco: Every Day Cigarettes Smokeless Tobacco: Never Tobacco Cessation:Ready to Q uit: Not Asked; Counseling Given: Not Answered Alcohol Use Standard Drinks/Week Comments Yes 0 (1 standard drink = 0.6 oz pur e alcohol) Education Answer Date Recorded Are you interested in more education? Not on cat e 01/22/2023 Are you concerned about learning? Not on file 01/22/2023 No 01/22/2023 No 01/22/2023 Digital Access Answer Date Recorded No 02/19/2023 No 02/19/2023 Reliable internet access at home? Not on file 02/19/2023 Device with a working camera? Not on file Intimate Partner Violence Answer Date R ecorded Are you denied basic needs s uch as food, clothing, or medical care? No 10/28/2024 In the past 12 months have y ou been in a relationship with a person who hurts, threatens, or tries to control you? No 10/28/2024 Are you denied basic needs s uch as food, clothing, or medical care? No 10/28/2024 In the past 12 months have y ou been in a relationship with a person who hurts, threatens, or tries to control you? 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 file Not on file Not on file Last Filed Vital Signs Vital Sign Reading Time Taken Comments Blood Pressure 106/70 11/11/2024 3:28 PM EST Pulse 68 11/11/2024 3:28 PM EST Temperature 36.3 C (97.4 F) 11/11/2024 3:28 PM EST Respiratory Rate 20 11/11/2024 3:28 PM EST Oxygen Saturation 95% 11/11/2024 3:28 PM EST Inhaled Oxygen Concentration - - Weight 74.8 kg (165 lb) 11/11/2024 3:28 PM EST Height 167.6 cm (5' 6 ) 11/11/2024 3:28 PM EST Body Mass Index 26.63 11/11/2024 3:28 PM EST Plan of Treatment Health Maintenance Due Date Last Done Comments DEPRESSION SCREENING 2004 SMOKING Hx and SMOKELESS TOBACCO SCREENING 2005 HEPATITIS C SCREENING 2010 HIV ONE-TIME SCREENING (18-65 YEARS) 2010 PNEUMOCOCCAL VACCINES (0-49 years) (1 of 2 - PCV) 2011 Adult Td,Tdap Booster 06/06/2017 06/06/2007, 004 COVID-19 VACCINE ( season) 2024 03/20/2021, 02/06/2021 HIB VACCINES Completed 08/15/1993, 10/29, 1992, Additional history exists MENINGOCOCCAL VACCINES (ACWY) Aged Out 08/12/2011, 07/08/2007 No longer eligibl e based on patient's age to complete this topic HEPATITIS A VACCINES Aged Out No long er eligible based on patient's age to complete this topic MENINGOCOCCAL VACCINES (B) Aged Out N o longer eligible based on patient's age to complete this topic Medical Devices Not on file Insurance [facility] [place] [id number] [facility] [place] [address] [place] [address] [place] [address] [place] [address] [facility] Care Teams Bullard Machine Operator Relationship Specialty Start Date End Date Anthony Mayen MD [address] [place] [address] [email or web address] PCP - General 10/28/24 Additional Source Comments The information contained in this document represents components of the legal health record. It is not the complete legal health record.[facility]
[2025-05-28 12:00] VITALS: O2SAT 82
--- NOTE | 2025-05-28 12:34 | PC.NURSE ---
De sated to 82% on RA with ambulation , provider aware
[2025-05-28 12:39] VITALS: PULSE 66; RESP 23; O2SAT 92
[2025-05-28] MEDS: Albuterol Sulfate 2.5 MG, Albuterol Sulfate (0.083%) 2.5 MG 5 MG INHALE (12:39)
--- NOTE | 2025-05-28 13:35 | PC.NURSE ---
Patient sating 88% on RA, continues to decline admission, gf at bedside aware. MD aware , patien discharged ama. Both patient and gf verbalized understanding of risks of leaving [facility].
[2025-05-28 13:37] VITALS: BP 133/65; PULSE 66; RESP 23; TEMP 36.8; O2SAT 90
== END 2025-05-28 13:38 | disposition left against medical advice (07) ==
PROVIDERS: Physician Assistant; Emergency Provider Emergency Medicine
DX: J45.901 Unspecified asthma with (acute) exacerbation (principal); J96.01 Acute respiratory failure with hypoxia; R05.9 Cough, unspecified
CPT/HCPCS: 36415; 71045; 80053; 85025; 87502; 87635; 87651; 94640; 96365; 96375; 99284; 99285; J0131; J2919; J3475

== ENCOUNTER → 2025-05-28 10:39 | Outpatient (BNV) | payer OTHER, SELFPAY | PROVIDERS: Emergency Provider Emergency Medicine; Visit Provider Radiology Diagnostic Radiology | DX: R06.02 Shortness of breath (principal); R05.9 Cough, unspecified | CPT/HCPCS: 71045 ==